=== PATIENT | female | born 1985 | race Caucasian/White ===

== ENCOUNTER 2020-10-24 13:11 | Outpatient (REF) | payer OTHER, SELFPAY ==
[2020-10-24 15:05] LABS: TSH reflex Free T4 0.44 uIU/mL (0.32-4.0)
[2020-10-25 03:59] LABS: CT PCR NOT DETECTED (Not Detect.); NG PCR NOT DETECTED (Not Detect.)
[2020-10-25 10:02] LABS: BV Int Neg Control Negative (Negative); BV Int Pos Control Positive (Positive)
[2020-10-26 20:22] LABS: HPV mRNA E6/E7 rflx Not Detected (Not Detected)
== END 2020-10-24 13:12 | disposition home or self-care (01) ==
LOC: HO.LAB 13:11
PROVIDERS: Visit Provider Obstetrics & Gynecology
DX: Z01.411 Encounter for gynecological examination (general) (routine) with abnormal findings (principal); Z11.51 Encounter for screening for human papillomavirus (HPV); Z11.3 Encounter for screening for infections with a predominantly sexual mode of transmission; N93.9 Abnormal uterine and vaginal bleeding, unspecified
CPT/HCPCS: 36415; 84443; 87480; 87491; 87510; 87591; 87624; 87660; 88142

== ENCOUNTER 2021-03-06 11:18 | Outpatient (REF) | payer OTHER, SELFPAY ==
[2021-03-06 13:34] LABS: Influenza A PCR NEGATIVE (Negative); Influenza B PCR NEGATIVE (Negative); Resp Syncy Virus RNA Qual PCR NEGATIVE (Negative); SARS COV2 PCR INHOUSE NEGATIVE (Negative)
== END 2021-03-06 11:19 | disposition home or self-care (01) ==
LOC: HO.LNP 11:18
PROVIDERS: Visit Provider Nurse Practitioner Family
DX: Z20.822 Contact with and (suspected) exposure to COVID-19 (principal); J32.9 Chronic sinusitis, unspecified; R09.81 Nasal congestion
CPT/HCPCS: 0241U

== ENCOUNTER 2021-04-08 13:34 | Outpatient (REF) | payer OTHER, SELFPAY ==
[2021-04-09 05:33] LABS: CT PCR NOT DETECTED (Not Detect.); NG PCR NOT DETECTED (Not Detect.)
[2021-04-09 10:21] LABS: BV Int Neg Control Negative (Negative); BV Int Pos Control Positive (Positive)
== END 2021-04-08 13:35 | disposition home or self-care (01) ==
LOC: HO.LAB 13:34
PROVIDERS: PCP Physician Assistant; Visit Provider Advanced Practice Midwife
DX: N89.8 Other specified noninflammatory disorders of vagina (principal); N92.1 Excessive and frequent menstruation with irregular cycle; N93.9 Abnormal uterine and vaginal bleeding, unspecified
CPT/HCPCS: 87480; 87491; 87510; 87591; 87660

== ENCOUNTER 2021-04-30 14:13 | Outpatient (REF) | payer OTHER, SELFPAY ==
--- NOTE | ~2021-04-30 | US_ITS ---
EXAMINATION: US PELVIS CLINICAL INFORMATION: Abnormal uterine bleeding. COMPARISON: Pelvic ultrasound 07/21/2013 TECHNIQUE: Ultrasound of the pelvis is performed using both transabdominal and transvaginal transducers along with Doppler. Transvaginal imaging is performed due to inadequate visualization transabdominally. FINDINGS: Uterus: The uterus is anteverted and measures 12.0 x 5.5 x 6.5 cm. The double wall endometrial thickness is 0.7 mm. The uterus is smooth in contour and has normal myometrial echogenicity. No visible fibroid. Previously seen IUD is not identified on the current exam. Nabothian cysts are present in the cervix. Adnexa: Both ovaries are visualized. There is normal color flow to the adnexa. There is no ovarian torsion. There is no pelvic ascites or fluid collection. Right ovary measures 4.5 x 2.7 x 2.8 cm for a volume of 17.7 mL which includes a complex hemorrhagic 2.1 x 2.1 x 1.9 cm cyst. Left ovary measures 2.8 x 1.4 x 2.4 cm for a 4.8 mL and appears normal. US/US pelvic and transvaginal IMPRESSION: No significant abnormality is seen. A small hemorrhagic cyst is present in the right ovary which needs no further follow-up.
[2021-04-30 15:29] LABS: Hematocrit 40.2 % (37.0-47.0); Hemoglobin 12.5 g/dl (12.0-16.0); Mean Corpuscular HGB Conc 31.1 g/dl (31.0-35.0); Mean Corpuscular Hemoglobin 26.1 pg (27.0-33.0); Mean Corpuscular Volume 83.9 fL (80.0-98.0); Mean Platelet Volume 10.1 fL (9.4-12.3); Platelet Count 259 X10*3/uL (160-400); Red Blood Count 4.79 X10*6/uL (4.20-5.50); Red Cell Distribution Width 12.9 % (11.0-16.0); White Blood Count 10.5 X10*3/uL (4.8-10.8)
[2021-04-30 16:12] LABS: Thyroid Stimulating Hormone 0.94 uIU/mL (0.32-4.0)
== END 2021-04-30 14:14 | disposition home or self-care (01) ==
LOC: HO.US 14:13
PROVIDERS: PCP Physician Assistant; Visit Provider Advanced Practice Midwife
DX: N93.9 Abnormal uterine and vaginal bleeding, unspecified (principal); N92.1 Excessive and frequent menstruation with irregular cycle; N88.8 Other specified noninflammatory disorders of cervix uteri
CPT/HCPCS: 36415; 76830; 76856; 84443; 85027

== ENCOUNTER → 2021-05-14 11:30 | Outpatient (BNVA) | payer OTHER, SELFPAY | PROVIDERS: PCP Physician Assistant; Visit Provider Advanced Practice Midwife ==

== ENCOUNTER 2021-06-04 09:29 | Emergency (ER) | payer OTHER, SELFPAY ==
--- NOTE | ~2021-06-04 | CT_ITS ---
EXAMINATION: CT ABDOMEN AND PELVIS WITH CONTRAST CLINICAL INFORMATION: Lower abdominal and pelvic pain COMPARISON: Previous abdominal ultrasound from earlier the same day and pelvic ultrasound April 2021 TECHNIQUE: Multidetector volumetric images were obtained from the superior aspect of the liver through the pubic symphysis following administration 80 mL of Omnipaque 350 intravenous contrast. Sagittal and coronal reformatted images were obtained on the technologist's workstation. Oral contrast: Yes This CT examination was performed using dose optimization techniques as appropriate, variously including the following: *Automated exposure control *Adjustment of mA and/or kV according to patient size (this includes techniques or standardized protocols for targeted exams where dose is matched to indication/reason for exam; i.e. extremities or head) *Use of iterative reconstruction technique DLP: 758 mGy-cm FINDINGS: LUNG BASES: The visualized lung bases are unremarkable. LIVER, GALLBLADDER, AND BILIARY TREE: The liver is normal in size, shape, and attenuation. No focal hepatic lesion or biliary ductal dilatation is present. The gallbladder is unremarkable with no evidence of radiopaque gallstones, gallbladder wall thickening, or obvious pericholecystic inflammatory changes. PANCREAS: Unremarkable. SPLEEN: Unremarkable. ADRENAL GLANDS: Unremarkable. KIDNEYS AND URETERS: The kidneys are normal in size, shape, and attenuation. No hydronephrosis, hydroureter, or calculi seen. No perinephric stranding. BLADDER: Unremarkable. GASTROINTESTINAL TRACT: The small and large bowel are unremarkable. The appendix is unremarkable. ABDOMINAL WALL: There is a small umbilical hernia containing fat. LYMPH NODES: There are small, small bowel mesentery and retroperitoneal lymph nodes. No enlarged lymph nodes are seen. VASCULAR: Unremarkable. PELVIC VISCERA: There is a small 1.5 x 2 cm slightly complex left ovarian cyst. This is irregularly-shaped and has a slightly thickened enhancing wall. Uterus and adnexa are otherwise unremarkable. There is trace ascites in the pelvis. OSSEOUS STRUCTURES: Unremarkable. CT/CT abdomen pelvis w con IMPRESSION: Small 1.5 x 2 cm minimally complex left ovarian cyst. Otherwise unremarkable exam. Fleischner guidelines were followed.
--- NOTE | ~2021-06-04 | XR_ITS ---
EXAMINATION: XR CHEST CLINICAL INFORMATION: Fevers. COMPARISON: None TECHNIQUE: Frontal view of the chest was obtained. FINDINGS: No significant abnormality is noted involving the heart, lungs, mediastinum, bony thorax or soft tissues. XR/XR chest 1V IMPRESSION: Unremarkable chest examination.
--- NOTE | ~2021-06-04 | US_ITS ---
EXAMINATION: US ABDOMEN LIMITED CLINICAL INFORMATION: Right upper quadrant pain. COMPARISON: None TECHNIQUE: Real-time imaging of the right upper quadrant abdominal viscera. FINDINGS: PANCREAS: Normal. LIVER: Normal. The liver is normal in size. The liver contour is normal. Parenchymal echogenicity is normal. No focal hepatic lesion. There is no intrahepatic biliary duct dilatation seen. GALLBLADDER: Normal. The gallbladder is physiologically distended without evidence of stones, sludge, polyps, wall thickening or pericholecystic fluid. COMMON BILE DUCT: Normal in caliber measuring 0.3 cm in diameter. RIGHT KIDNEY: Normal. No hydronephrosis. No renal calculi or focal parenchymal lesions. The kidney measures 12.4 cm in maximum dimension. FREE FLUID: None. US/US abdomen limited IMPRESSION: Normal right upper quadrant ultrasound.
[2021-06-04 10:39] VITALS: BP 120/79; PULSE 98; RESP 18; TEMP 36.8; O2SAT 97; BMI 33.6
--- NOTE | 2021-06-04 10:49 | PC.NURSE ---
Pt received from triage: Pt AOX3 and offers c/o RUQ. Pt abd soft and midly tender to area. Pt also c/o N/V, denies diarrhea. Heart sounds normal and lungs clear.
--- NOTE | 2021-06-04 11:08 | ED_ITS ---
HPI - Abdominal Pain General Chief Complaint: Abdominal Pain Stated Complaint: R SIDE PAIN Time Seen by Provider: 06/04/21 11:07 Source: patient Mode of arrival: ambulatory Limitations: no limitations History of Present Illness MD elicited complaint: abdominal pain (chills, n/v/d ) Onset (ago): day(s) (on and off for past 1 week seemed to get better then returned over the week, has had negative COVID tests) Pain Consistency: intermittent Location: RUQ Severity: moderate Quality: aching Radiation: none Migration to: no migration Exacerbating factors: eating Relieving factors: nothing Context: other (vaccinated x 2) Associated symptoms: nausea, vomiting and chills Related Data Home Medications Medication Instructions Recorded Confirmed [id number] 18 mg-FA 400 tab PO 05/30/21 mcg-calcium 500 mg-vit K 50 mcg tablet (Women's Multivitamin) Previous Rx's Medication Instructions Recorded naproxen 500 mg tablet 500 mg PO BID PRN #60 tab 04/26/20 metronidazole 500 mg tablet 500 mg PO BID 7 Days #14 tab 10/25/20 (Flagyl) azithromycin 250 mg tablet See Rx Instructions PO .COMPLEX #6 03/06/21 tab fluconazole 150 mg tablet 150 mg PO DAILY #1 tab 04/09/21 (Diflucan) cyclobenzaprine 5 mg tablet 5 mg PO BEDTIME PRN #14 tab 05/30/21 ondansetron 4 mg disintegrating 4 mg PO Q8H PRN #20 tab 06/04/21 tablet Allergies Allergy/AdvReac Type Severity Reaction Status Date / Time No Known Allergies Allergy Verified 06/04/21 10:39 [No Known Allergies*] Review of Systems Review of Systems Constitutional : No Weight loss, No Fever, pos Chills ENT/Mouth : No sore throat, No Rhinorrhea Eyes: No Swelling, No Redness Cardiovascular : No Chest Pain, No SOB, NoEdema Respiratory : No Cough, No Sputum, No Wheezing Gastrointestinal : Positive Nausea, Positive Vomiting, positive Diarrhea, positive abdominal Pain, No Hematochezia, No Melena Genitourinary : No Dysuria, No Urinary Frequency, No Hematuria, No Urgency Musculoskeletal : No joint pain, pos Myalgias, No Joint Swelling Skin : No Skin Lesions, No rash Neuro : No Weakness, No Numbness, No Dizziness, No Headache Psych : No Anxiety/Panic, No Depression Heme/Lymph: No Bruising, No Lymphadenopathy Endocrine : No Polyuria, No Polydipsia All other systems reviewed and are negative. Physical Exam Verdana 4l Vital Signs: Verdana 4d Verdana 4d Vital Signs: Verdana 4d Verdana 4Bd Last Vital Signs Verdana 4d Beam Dyer Operator New 4d Beam Dyer Operator New 4d Temp 98.3 F 06/04/21 10:39 Beam Dyer Operator New 4d Pulse 69 06/04/21 12:43 Beam Dyer Operator New 4d Resp 14 06/04/21 12:43 BP 103/60 06/04/21 12:43 Pulse Ox 100 06/04/21 12:43 BMI result Body Mass Index 33.6 Appearance: Alert. Oriented X3. No acute distress. Eyes: Pupils equal, round and reactive to light. ENT: Pharynx normal. Neck: Normal inspection. Neck supple. CVS: Normal heart rate and rhythm. Pulses normal. Chest: ttp RL ribs reproduces pain Respiratory: No respiratory distress. Breath sounds normal. Abdomen: Soft and non-tender, neg blake's no rebound Skin: Skin warm and dry. Normal skin color. Normal skin turgor. Extremities: No lower extremity edema. No calf ttp Neuro: Oriented X 3. No motor deficit. No sensory deficit. Course Course Course Narrative: negative viral panel, no pneumonia, elevated CRP, US negative for acute cholecystitis, CT scan ordered at this time for appendicitis. no acute findings at this time elevated CRP but negative WBC afebrile here has small complex ovarian cyst but all pain is in RUQ and L cyst is old per pateint - seems unusual doubt TOA at this time stable for DC MDM - Abdominal Pain MDM Narrative Medical decision making narrative: 35 yo female unvaccinated here with c/o n/v/d chills not feeling well negative COVID tests - has some RUQ pain at this time will need labs, CXR, COVID swab, UA - possible CT scan of abdomen given complaints to evaluate appendicitis/GB dispo per results and findings. Lab Data Result diagrams: 06/04/21 11:47 06/04/21 11:47 Labs: Lab Results 06/04/21 06/04/21 06/04/21 Range/Units 11:47 11:47 11:47 WBC 9.4 (4.8-10.8) X10*3/uL RBC 5.16 (4.20-5.50) X10*6/uL Hgb 13.2 (12.0-16.0) g/dl Hct 41.3 (37.0-47.0) % MCV 80.0 (80.0-98.0) fL MCH 25.6 L (27.0-33.0) pg MCHC 32.0 (31.0-35.0) g/dl RDW 12.6 (11.0-16.0) % Plt Count 289 (160-400) X10*3/uL MPV 9.5 (9.4-12.3) fL Immature Gran % (Auto) 0.6 H (0.0-0.4) % Neut % (Auto) 81.4 H (45-73) % Lymph % (Auto) 9.6 L (20-40) % [place] % (Auto) 7.0 (2-11) % Eos % (Auto) 1.3 (0-4) % Baso % (Auto) 0.1 (0-2) % Lymph # (Auto) 0.9 L (1.2-4.9) X10*3/uL [place] # (Auto) 0.7 (0.1-1.2) X10*3/uL Eos # (Auto) 0.1 (0.0-0.4) X10*3/uL Baso # (Auto) 0.0 (0.0-0.2) X10*3/uL Abs Immat Gran (auto) 0.06 H (0.00-0.03) X10*3/uL Absolute Neuts (auto) 7.7 (2.0-8.3) x10*3/uL Absolute Nucleated RBC 0.000 (0.0-0.012) X10*3/uL Nucleated RBC % (auto) 0.0 (0.0-0.2) /100WBC Sodium 136 (135-145) mmol/L Potassium 4.0 (3.3-5.1) mmol/L Chloride 103 (96-108) mmol/L Carbon Dioxide 26 (22-29) mmol/L Anion Gap 11 L (12-20) BUN 13 (9-16) mg/dL Creatinine 0.70 (0.5-1.4) mg/dL Estim Creat Clear Calc 115.6 Estimated GFR > 60 Random Glucose 83 (60-115) mg/dL Calcium 9.1 (8.4-10.2) mg/dL Magnesium 2.2 (1.6-2.6) mg/dL Total Bilirubin 1.0 (0.0-1.0) mg/dL Direct Bilirubin 0.4 (0.0-0.5) mg/dL AST 22 (5-31) U/L ALT 41 H (0-31) U/L Alkaline Phosphatase 105 (39-117) U/L C-Reactive Protein 4.05 H (< or = 0.50) mg/dL Total Protein 7.0 (6.5-8.0) g/dL Albumin 3.9 (3.5-5.0) g/dL Lipase 19 (8-78) U/L Urine Color Urine Appearance Urine pH (5.0-8.0) Ur Specific [place] (1.005-1.025) Urine Protein (NEG-TRACE) MG/DL Urine Glucose (UA) (NEG) MG/DL Urine Ketones (NEG) MG/DL Urine Blood (NEG) Urine Nitrite (NEG) Ur Leukocyte Esterase (NEG) Urine Test (NEGATIVE) COVID-19 (LINA) Negative (Negative) COVID-19 Clin Com See Note Influenza Type A (MADHU) (Negative) Influenza Type B (MADHU) (Negative) Influenza A & B Note 06/04/21 06/04/21 06/04/21 Range/Units 11:47 11:47 11:47 WBC (4.8-10.8) X10*3/uL RBC (4.20-5.50) X10*6/uL Hgb (12.0-16.0) g/dl Hct (37.0-47.0) % MCV (80.0-98.0) fL MCH (27.0-33.0) pg MCHC (31.0-35.0) g/dl RDW (11.0-16.0) % Plt Count (160-400) X10*3/uL MPV (9.4-12.3) fL Immature Gran % (Auto) (0.0-0.4) % Neut % (Auto) (45-73) % Lymph % (Auto) (20-40) % [place] % (Auto) (2-11) % Eos % (Auto) (0-4) % Baso % (Auto) (0-2) % Lymph # (Auto) (1.2-4.9) X10*3/uL [place] # (Auto) (0.1-1.2) X10*3/uL Eos # (Auto) (0.0-0.4) X10*3/uL Baso # (Auto) (0.0-0.2) X10*3/uL Abs Immat Gran (auto) (0.00-0.03) X10*3/uL Absolute Neuts (auto) (2.0-8.3) x10*3/uL Absolute Nucleated RBC (0.0-0.012) X10*3/uL Nucleated RBC % (auto) (0.0-0.2) /100WBC Sodium (135-145) mmol/L Potassium (3.3-5.1) mmol/L Chloride (96-108) mmol/L Carbon Dioxide (22-29) mmol/L Anion Gap (12-20) BUN (9-16) mg/dL Creatinine (0.5-1.4) mg/dL Estim Creat Clear Calc Estimated GFR Random Glucose (60-115) mg/dL Calcium (8.4-10.2) mg/dL Magnesium (1.6-2.6) mg/dL Total Bilirubin (0.0-1.0) mg/dL Direct Bilirubin (0.0-0.5) mg/dL AST (5-31) U/L ALT (0-31) U/L Alkaline Phosphatase (39-117) U/L C-Reactive Protein (< or = 0.50) mg/dL Total Protein (6.5-8.0) g/dL Albumin (3.5-5.0) g/dL Lipase (8-78) U/L Urine Color YELLOW Urine Appearance HAZY Urine pH 6.5 (5.0-8.0) Ur Specific [place] 1.020 (1.005-1.025) Urine Protein NEG (NEG-TRACE) MG/DL Urine Glucose (UA) NEG (NEG) MG/DL Urine Ketones 5 (NEG) MG/DL Urine Blood NEG (NEG) Urine Nitrite NEG (NEG) Ur Leukocyte Esterase NEG (NEG) Urine Test NEGATIVE (NEGATIVE) COVID-19 (LINA) (Negative) COVID-19 Clin Com Influenza Type A (MADHU) Negative (Negative) Influenza Type B (MADHU) Negative (Negative) Influenza A & B Note See Note Discharge Plan Discharge Clinical Impression: Acute viral syndrome Ovarian cyst Qualifiers: Laterality: left Qualified Code(s): N83.202 - Unspecified ovarian cyst, left side Patient Disposition: Home, Self-Care Instructions: Ovarian Cyst (ED), Viral Syndrome (ED) Additional Instructions: return to ED for any worsening symptoms or concerns follow up with PCP if not better in 2 days follow up with OBGYN for ovarian cyst in 4 weeks for repeat ultrasound negative COVID and flu tests Prescriptions: New ondansetron 4 mg tablet,disintegrating 4 mg PO Q8H PRN (Reason: nausea and vomiting) Qty: 20 0RF No Action metronidazole [Flagyl] 500 mg tablet 500 mg PO BID 7 Days Qty: 14 0RF Rx Instructions: Take with food, Avoid alcohol and vinegar products fluconazole [Diflucan] 150 mg tablet 150 mg PO DAILY Qty: 1 0RF Rx Instructions: administer on day 1 of therapy naproxen 500 mg tablet 500 mg PO BID PRN (Reason: pain) Qty: 60 0RF azithromycin 250 mg tablet See Rx Instructions PO .COMPLEX Qty: 6 0RF Rx Instructions: For 250 mg dose pack: take 500 mg today (day 1), then 250 mg for 4 days (days 2-5) PO Women's Multivitamin 18 mg-400 mcg- 500 mg-50 mcg tablet PO 0RF cyclobenzaprine 5 mg tablet 5 mg PO BEDTIME PRN (Reason: muscle spasm) Qty: 14 0RF Stand Alone Forms: Work/School Release Interventions: ED Discharge Assessment Last Done: 06/04/21 15:20 Discharge Date/Time: 06/04/21 15:35 [facility] Past Medical History Medical History History of lipoma Right ovarian cyst Surgical History History of bilateral breast reduction surgery History of bilateral salpingectomy History of section Family History Family History Maternal Grandmother Diabetes Hypertension Glaucoma Maternal Grandfather Diabetes Hypertension Social History Social History Patient Tobacco Use Status: Never used Tobacco Advance Directives: No Advance Directives Information Provided: No
[2021-06-04] MEDS: ondansetron HCL 4 MG/2 ML VIAL IVPUSH (11:51)
[2021-06-04] MEDS: Ketorolac Tromethamine 30 MG/ML VIAL IVPUSH (11:51)
[2021-06-04] MEDS: 0.9 % Sodium Chloride 1,000 ML 999 ML IVCONT (11:52)
[2021-06-04 11:58] LABS: MANUAL DIFF FLAG NO
[2021-06-04 12:06] LABS: Basophils Percent Auto 0.1 % (0-2); Eosinophils Absolute Auto 0.1 X10*3/uL (0.0-0.4); Eosinophils Percent Auto 1.3 % (0-4); Hematocrit 41.3 % (37.0-47.0); Hemoglobin 13.2 g/dl (12.0-16.0); Imm Gran Abs Auto 0.06 X10*3/uL (0.00-0.03); Imm Gran Pct Auto 0.6 % (0.0-0.4); Lymphocytes Absolute Auto 0.9 X10*3/uL (1.2-4.9); Lymphocytes Percent Auto 9.6 % (20-40); Mean Corpuscular Hemoglobin 25.6 pg (27.0-33.0); Mean Platelet Volume 9.5 fL (9.4-12.3); Monocytes Absolute Auto 0.7 X10*3/uL (0.1-1.2); Neutrophils Absolute Auto 7.7 x10*3/uL (2.0-8.3); Neutrophils Percent Auto 81.4 % (45-73); Platelet Count 289 X10*3/uL (160-400); Red Blood Count 5.16 X10*6/uL (4.20-5.50); Red Cell Distribution Width 12.6 % (11.0-16.0); White Blood Count 9.4 X10*3/uL (4.8-10.8)
[2021-06-04 12:12] LABS: Appearance Urine HAZY; Color Urine YELLOW; Glucose Urine UA NEG (NEG); Leukocyte Esterase Urine NEG (NEG); Nitrite Urine NEG (NEG); PH 6.5 (5.0-8.0); Urine Blood NEG (NEG); Urine Ketones 5 MG/DL (NEG); Urine Protein NEG (NEG-TRACE)
[2021-06-04 12:15] LABS: UPreg QC Valid YES; Urine Pregnancy NEGATIVE (NEGATIVE)
[2021-06-04 12:26] LABS: Alanine Aminotransferase 41 U/L (0-31); Albumin Level 3.9 g/dL (3.5-5.0); Alkaline Phosphatase 105 U/L (39-117); Anion Gap 11 (12-20); Aspartate Amino Transferase 22 U/L (5-31); Bilirubin Direct 0.4 mg/dL (0.0-0.5); Blood Urea Nitrogen 13 mg/dL (9-16); C Reactive Protein 4.05 mg/dL (< or = 0.50); Calcium 9.1 mg/dL (8.4-10.2); Carbon Dioxide 26 mmol/L (22-29); Chloride 103 mmol/L (96-108); Creatinine Clr Calc Pharmacy 115.6; Estimated Glomerular Filt Rate > 60; Glucose Random 83 mg/dL (60-115); Lipase 19 U/L (8-78); Magnesium 2.2 mg/dL (1.6-2.6); Sodium 136 mmol/L (135-145)
[2021-06-04 12:31] LABS: COVID-19 Test Negative (Negative); IDNOW Serial# 55D5AD1C
[2021-06-04 12:38] LABS: Influenza A Negative (Negative); Influenza B2 Negative (Negative)
[2021-06-04 12:43] VITALS: BP 103/60; PULSE 69; RESP 14; O2SAT 100
[2021-06-04] MEDS: iohexoL 350 MG/ML 100 ML INFUS..BTL IV ×2 (13:35→13:43)
== END 2021-06-04 15:35 | disposition home or self-care (01) ==
PROVIDERS: Emergency Provider Emergency Medicine
DX: B34.9 Viral infection, unspecified (principal); N83.202 Unspecified ovarian cyst, left side; Z20.822 Contact with and (suspected) exposure to COVID-19; R10.9 Unspecified abdominal pain
CPT/HCPCS: 71045; 74177; 76705; 80048; 80076; 81003; 81025; 83690; 83735; 85025; 86140; 87502; 87635; 96361; 96374; 96375; 99283; 99284; J1885; J2405; Q9967

== ENCOUNTER 2021-06-25 12:47 | Outpatient (REF) | payer OTHER, SELFPAY ==
--- NOTE | ~2021-06-25 | US_ITS ---
EXAMINATION: US PELVIS CLINICAL INFORMATION: Right ovarian cyst COMPARISON: Previous pelvic ultrasound April [address] of the abdomen and pelvis 06/04/2021 TECHNIQUE: Ultrasound of the pelvis is performed using both transabdominal and transvaginal transducers along with Doppler. Transvaginal imaging is performed due to inadequate visualization transabdominally. FINDINGS: The uterus is anteverted and measures 9 x 5 x 5.6 cm in dimension. There is a small calcification in the uterus. No other focal uterine lesion is seen. Endometrial thickness is normal measuring 0.7 cm. There is a nabothian cyst in the cervix. The ovaries are normal-appearing. The right ovary measures 3.6 x 2.4 x 3.6 cm. The left ovary measures 2.8 x 1.7 x 2.5 cm. The previously identified 2 cm complex right ovarian cyst on April 2021 exam is no longer seen. There is a small amount of fluid in the pelvis. US/US pelvic and transvaginal IMPRESSION: Resolved right ovarian cyst from April 2021 exam.
== END 2021-06-25 12:48 | disposition home or self-care (01) ==
LOC: HO.US 12:47
PROVIDERS: PCP Nurse Practitioner Family; Visit Provider Advanced Practice Midwife
DX: N83.201 Unspecified ovarian cyst, right side (principal)
CPT/HCPCS: 76830; 76856

== ENCOUNTER 2021-08-23 08:00 | Outpatient (RCR) | payer OTHER, SELFPAY ==
--- NOTE | 2021-06-20 15:47 | MHC.PT.PR ---
[facility] [place] Office [place] Office [place] Office [address] Phani Echevarria [address] [phone] F: [phone] F: [phone] F: [phone] F: [phone] Physical Therapy Progress Note Diagnosis: RUBEN UPPER TRAP PAIN Date of Surgery: NA Date of Evaluation: 06/19/21 Treatments to Date: 1 Cancellations to Date: 0 No Shows to Date: 0 Subjective: C/O RIGHT LOW BACK PAIN WITH RADICULAR SYMPTOMS INTO BUTTOCKS, VAGINA AND POSTERIOR THIGH Pain Score and Location: CURRENTLY 9, 10 AT WORST Objective Measures: PLEASE SEE EVAL Assessment: CHENTE PRESENTS WITH LOW BACK PAIN AND S/S WITH PIRIFORMIS SYNDROME. CHENTE PRESENTS WITH ADDITIONAL SYMPTOMS OF POSSIBLE PELVIC FLOOR DYSFUNCTION LEADING TO INCREASED PAIN. IMPAIRMENTS INCLUDE DECREASED LE ROM AND STRENGTH, MULTIPLE TRIGGER POINTS, NUMBNESS OF RIGHT BUTTOCKS AND VAGINAL WALL, INCREASED PAIN. FUNCTIONAL LIMITATIONS INCLUDE DECREASED TOLERANCE TO LIFTING, SQUATTING, WALKING/RUNNING AND SITTING FOR LONG PERIODS. SHE REPORTS DECREASED ABILITY TO PERFORM HOMEMAKING AND WORK TASKS, DECREASED PARTICIPATION IN RECREATION AND FITNESS ACTIVITIES. A PT IS A GOOD CANDIDATE FOR SKILLED PT DUE TO AGE, POTENTIAL REMEDIATION OF IMPAIRMENTS, TYPICAL DISEASE/CONDITION PROGRESSION AND PROGNOSIS, COMORBIDITIES, AND MOTIVATION. PT WOULD BENEFIT FROM TAILORED PROGRAM OF THERAPEUTIC ACTIVITIES, FUNCTIONAL TRAINING, GAIT TRAINING, POSTURAL EDUCATION, NEUROMUSCULAR RE-EDUCATION, AND MODALITIES NEEDED. PT Plan: Frequency and Duration: The patient will be seen 2 X WEEK FOR 5 WEEKS Treatment Plan: Therapeutic Exercise Dynamic Therapeutic Activities Neuromuscular Re-ed Manual Therapies Joint Mobilization Taping Gait Home Exercise Program Patient Education Electrical Stimulation Mechanical Traction Hot or Cold Pack Pelvic Floor Therapy Reviewed/ Agreed with Student Documentation: Therapist: Thank you once again for your referral.
--- NOTE | 2021-08-23 08:52 | MHC.PT.DC ---
[facility] [place] Office [place] Office [place] Office [address] Phani Echevarria [address] [phone] F: [phone] F: [phone] F: [phone] F: [phone] Physical Therapy Discharge Report Diagnosis: RUBEN UPPER TRAP PAIN Date of Surgery: NA Date of Evaluation: 06/19/21 Date of Discharge: 08/23/21 Treatments to Date: 12 Cancellations to Date: 0 No Shows to Date: 0 Discharge Status: Achieved Goals Improved Function Independent with HEP Discharge Summary: Queta had completed 12 PT visits and has improved significantly. She is independent with all her HEPs and has returned to PLOF. She is therefore being d/c from PT today. Electronically signed by: Erma Benitez, PT DPT Please sign and return to therapist. Thank you for your referral.
== END 2021-08-23 08:52 | disposition home or self-care (01) ==
LOC: HO.PT 08:00
PROVIDERS: PCP Nurse Practitioner Family; Visit Provider Nurse Practitioner Family
DX: M53.3 Sacrococcygeal disorders, not elsewhere classified (principal)
CPT/HCPCS: 97014; 97110; 97112; 97140; 97162; 97164; 97530

== ENCOUNTER 2021-10-23 09:28 | Outpatient (REF) | payer OTHER, SELFPAY ==
[2021-10-23 10:26] LABS: Alanine Aminotransferase 23 U/L (0-31); Albumin Level 4.2 g/dL (3.5-5.0); Alkaline Phosphatase 78 U/L (39-117); Anion Gap 11 (12-20); Aspartate Amino Transferase 22 U/L (5-31); Bilirubin Direct 0.3 mg/dL (0.0-0.5); Bilirubin Total 0.6 mg/dL (0.0-1.0); Blood Urea Nitrogen 13 mg/dL (9-16); C Reactive Protein 0.65 mg/dL (< or = 0.50); Carbon Dioxide 26 mmol/L (22-29); Chloride 104 mmol/L (96-108); Cholesterol 158 mg/dL; Estimated Glomerular Filt Rate > 60; Glucose Fasting 89 mg/dL (60-99); HDL Cholesterol 40 mg/dL; LDL Cholesterol Calculated 103 mg/dl; Potassium 4.1 mmol/L (3.3-5.1); Sodium 137 mmol/L (135-145); Total Protein 7.3 g/dL (6.5-8.0); Triglycerides 77 mg/dL
== END 2021-10-23 09:29 | disposition home or self-care (01) ==
LOC: HO.LAB 09:28
PROVIDERS: PCP Nurse Practitioner Family; Visit Provider Nurse Practitioner Family
DX: R94.5 Abnormal results of liver function studies (principal); R79.82 Elevated C-reactive protein (CRP); E78.00 Pure hypercholesterolemia, unspecified; Z76.89 Persons encountering health services in other specified circumstances
CPT/HCPCS: 36415; 80048; 80061; 80076; 86140

== ENCOUNTER 2022-04-30 09:27 | Outpatient (REF) | payer OTHER, SELFPAY | END 2022-04-30 09:28 | disposition home or self-care (01) | LOC: HO.LNP 09:27 | PROVIDERS: Visit Provider Advanced Practice Midwife | DX: Z13.89 Encounter for screening for other disorder (principal) ==

== ENCOUNTER 2022-04-30 10:20 | Outpatient (REF) | payer OTHER, SELFPAY ==
[2022-04-30 10:46] LABS: MANUAL DIFF FLAG NO
[2022-04-30 10:58] LABS: Basophils Percent Auto 0.3 % (0-2); Eosinophils Absolute Auto 0.1 X10*3/uL (0.0-0.4); Eosinophils Percent Auto 0.9 % (0-4); Hematocrit 43.3 % (37.0-47.0); Hemoglobin 13.6 g/dl (12.0-16.0); Imm Gran Abs Auto 0.03 X10*3/uL (0.00-0.03); Imm Gran Pct Auto 0.2 % (0.0-0.4); Lymphocytes Absolute Auto 1.6 X10*3/uL (1.2-4.9); Lymphocytes Percent Auto 12.2 % (20-40); Mean Corpuscular HGB Conc 31.4 g/dl (31.0-35.0); Mean Corpuscular Hemoglobin 25.3 pg (27.0-33.0); Mean Corpuscular Volume 80.5 fL (80.0-98.0); Mean Platelet Volume 9.9 fL (9.4-12.3); Monocytes Absolute Auto 0.9 X10*3/uL (0.1-1.2); Monocytes Percent Auto 6.6 % (2-11); Neutrophils Absolute Auto 10.3 x10*3/uL (2.0-8.3); Neutrophils Percent Auto 79.8 % (45-73); Platelet Count 292 X10*3/uL (160-400); Red Blood Count 5.38 X10*6/uL (4.20-5.50); Red Cell Distribution Width 12.9 % (11.0-16.0); White Blood Count 12.9 X10*3/uL (4.8-10.8)
[2022-04-30 11:49] LABS: Thyroid Stimulating Hormone 1.11 uIU/mL (0.32-4.0)
[2022-04-30 12:19] LABS: Syphilis Screen Nonreactive (Nonreactive)
[2022-04-30 12:28] LABS: HBc Num1 0.08 S/CO (0.00-0.79); HIV AB/AG Nonreactive (Nonreactive); HIV Num 1 0.06 S/CO (0.00-0.99); Hepatitis B Core Antibody Nonreactive (Nonreactive); ~Hepatitis C Antibody Nonreactive (Nonreactive)
[2022-04-30 18:04] LABS: CT PCR NOT DETECTED (Not Detect.); NG PCR NOT DETECTED (Not Detect.)
[2022-05-01 09:19] LABS: BV Int Neg Control Negative (Negative); BV Int Pos Control Positive (Positive)
== END 2022-04-30 10:21 | disposition home or self-care (01) ==
LOC: HO.LAB 10:20
PROVIDERS: Visit Provider Advanced Practice Midwife
DX: Z11.3 Encounter for screening for infections with a predominantly sexual mode of transmission (principal); Z11.4 Encounter for screening for human immunodeficiency virus [HIV]; Z20.2 Contact with and (suspected) exposure to infections with a predominantly sexual mode of transmission; N92.1 Excessive and frequent menstruation with irregular cycle
CPT/HCPCS: 84443; 85025; 86704; 86780; 86803; 87389; 87480; 87491; 87510; 87591; 87660

== ENCOUNTER 2022-12-19 10:58 | Outpatient (AMB) | payer OTHER, SELFPAY ==
[2022-12-19 11:00] VITALS: BP 106/70; PULSE 78; O2SAT 98; BMI 35.4
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
== END 2022-12-19 11:37 | disposition home or self-care (01) ==
PROVIDERS: Visit Provider Nurse Practitioner Family
DX: Z00.00 Encounter for general adult medical examination without abnormal findings (principal); R22.9 Localized swelling, mass and lump, unspecified; E66.9 Obesity, unspecified; Z68.35 Body mass index [BMI] 35.0-35.9, adult; M54.50 Low back pain, unspecified
CPT/HCPCS: 99395

== ENCOUNTER 2022-12-27 09:06 | Outpatient (REF) | payer OTHER, SELFPAY ==
--- NOTE | ~2022-12-27 | XR_ITS ---
EXAMINATION: XR LUMBOSACRAL SPINE WITH OBLIQUES CLINICAL INFORMATION: Low back pain COMPARISON: None available. TECHNIQUE: AP, both oblique, and lateral views of the lumbar spine. Lateral view of the lumbosacral junction. FINDINGS: Mild leftward curvature/rotation of the lumbar spine. Rounded pelvic calcifications are likely vascular. Degenerative changes in the bilateral sacroiliac joints. Facet arthritis in the lower lumbar spine. Advanced degenerative changes at L5-S1 with loss of disc space height and hypertrophic change. Grade 1 anterolisthesis of L5 on S1 with possible spondylolysis. XR/XR lumbar spine 4V min IMPRESSION: Advanced degenerative changes at L5-S1. Grade 1 anterolisthesis of L5 on S1 with possible spondylolysis.
[2022-12-27 09:19] LABS: MANUAL DIFF FLAG NO
[2022-12-27 09:23] LABS: Basophils Percent Auto 0.5 % (0-2); Eosinophils Absolute Auto 0.1 X10*3/uL (0.0-0.4); Eosinophils Percent Auto 1.8 % (0-4); Hemoglobin 12.9 g/dl (12.0-16.0); Imm Gran Abs Auto 0.04 X10*3/uL (0.00-0.03); Imm Gran Pct Auto 0.5 % (0.0-0.4); Lymphocytes Absolute Auto 1.6 X10*3/uL (1.2-4.9); Lymphocytes Percent Auto 20.5 % (20-40); Mean Corpuscular HGB Conc 31.5 g/dl (31.0-35.0); Mean Corpuscular Hemoglobin 25.9 pg (27.0-33.0); Mean Corpuscular Volume 82.2 fL (80.0-98.0); Mean Platelet Volume 9.8 fL (9.4-12.3); Monocytes Absolute Auto 0.6 X10*3/uL (0.1-1.2); Monocytes Percent Auto 7.9 % (2-11); Neutrophils Absolute Auto 5.3 x10*3/uL (2.0-8.3); Neutrophils Percent Auto 68.8 % (45-73); Platelet Count 252 X10*3/uL (160-400); Red Blood Count 4.99 X10*6/uL (4.20-5.50); White Blood Count 7.7 X10*3/uL (4.8-10.8)
[2022-12-27 10:16] LABS: Alanine Aminotransferase 13 U/L (0-31); Alkaline Phosphatase 66 U/L (39-117); Anion Gap 9 (12-20); Aspartate Amino Transferase 15 U/L (5-31); Bilirubin Total 0.5 mg/dL (0.0-1.0); Blood Urea Nitrogen 11 mg/dL (9-16); Carbon Dioxide 27 mmol/L (22-29); Chloride 106 mmol/L (96-108); Cholesterol 143 mg/dL (<200); Estimated Glomerular Filt Rate > 60; Glucose Fasting 94 mg/dL (60-99); HDL Cholesterol 40 mg/dL (>40); LDL Cholesterol Calculated 83 mg/dL (<100); Sodium 138 mmol/L (135-145); Total Protein 7.1 g/dL (6.5-8.0); Triglycerides 100 mg/dL (<150)
[2022-12-27 10:38] LABS: TSH reflex Free T4 0.89 uIU/mL (0.32-4.0); Vitamin D 25-OH Total 29.7 ng/mL (>30)
[2022-12-27 10:44] LABS: Folate 9.9 ng/mL (> or = 4.0); Vitamin B12 336 pg/mL (200-900)
== END 2022-12-27 09:07 | disposition home or self-care (01) ==
LOC: HO.XRAY 09:06
PROVIDERS: PCP Nurse Practitioner Family; Visit Provider Nurse Practitioner Family
DX: M54.50 Low back pain, unspecified (principal); Z00.00 Encounter for general adult medical examination without abnormal findings; E55.9 Vitamin D deficiency, unspecified
CPT/HCPCS: 36415; 72110; 80053; 80061; 82306; 82607; 82746; 84443; 85025

== ENCOUNTER → 2023-01-06 15:16 | Outpatient (BNVA) | payer OTHER, SELFPAY | PROVIDERS: PCP Nurse Practitioner Family; Visit Provider Physician Assistant Surgical ==

== ENCOUNTER 2023-01-16 08:11 | Outpatient (AMB) | payer OTHER, SELFPAY ==
--- NOTE | 2023-01-16 12:46 | A.OFFVIS_ITS ---
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 protein shakes, intermittent fasting Wakes up: 5.30am, Sleeps: 9pm Breakfast: skips Lunch: 11am (chicken salad, rice with chicken) Dinner: 6pm (sandwich, chicken) Snacks: 10am (berries), 3-4pm (Cookies) Exercise: Gym membership Fluids: Coffee 1 cup/day (creamer), tea: none, soda: none, juice: none, ETOH: 1- 2/month (glass of wine) [facility] Medical History (Updated 01/16/23 @ 12:50 by Gil Garcia MD) Nasal congestion Sinusitis History of lipoma Surgical History History of bilateral breast reduction surgery History of bilateral salpingectomy History of section Family History Maternal Grandmother Diabetes Hypertension Glaucoma Maternal Grandfather Diabetes Hypertension Maternal Aunt Breast cancer Social History Housing: House Alcohol intake: never Patient Tobacco Use Status: Never used Tobacco e-Cigarette/Vaping Use: Never Used Second Hand Smoke Exposure: No service: No 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 Plan for lap sleeve gastrectomy. If diaphragmatic or ventral hernias are present at time of surgery, these will be repaired laparoscopically as well. Risks and complications were discussed in detail including possible conversion to an open procedure, anastomotic leak, bleeding requiring transfusion, small bowel obstruction, , DVT and pulmonary embolism, cardiac, or pulmonary complications, as joint terminal attack controller complications such as anastomotic ulcer, insufficient weight loss and vitamin deficiencies. I emphasized the importance of close follow-up, adherence to instructions and good communication. 2. Nutritional counseling. Start with 2 Celebrate REBUILD protein (buy at [facility]'s [employer] or online) shakes (HALF scoop EACH in 8oz low fat unsweetened almond milk each) at 7am-9am and 10am-12pm, 2 Celebrate protein bars (buy at [email or web address] or online) at 1pm-3pm and 4pm-6pm, dinner at 7pm (8 forks of protein and 8 forks of salad/vegetables). If you feel hungry after dinner please have another HALF Celebrate protein bar at 8pm-9pm. Meal to include lean meat (beef, fish, pork, turkey, chicken), or macanese yogurt, or egg whites, or beans with a salad with olive oil and fruits (berries, pears, apples, kiwi). Avoid salt, breads, potatoes, rice, pasta, desserts. 3. Each shake would be drunk slowly, like coffee in a period of 2 hours. 4. Cut each bar in 4 pieces and eat each piece in 30min ?to make each bar last 2 hours. 5. I emphasized the importance of measuring accurately the food portion and measure it when serving the food in plate 6. The meal portions include 8 full-size forks of meat and 8 full-size forks of salad. You always eat the meat portion but you can replace up to 4 forks for salad/vegetables with rice, potatoes or pasta, or a fruit ?if you like. The less you do it the better weight loss will be. 7. One full-size fork is what it can be scooped on the fork without falling aside and not what can be bit with the fork. Use regular forks like those you find in a typical restaurant. 8.? Please send me weight measurements as soon as possible and then once a week. Always include your diet and exercise plan. 9. Start stationary bike at a resistance level of 4.0 Increase level by 1.0 every 3 min to a max level of 10.0. Stay at this level for 3 min and then return to level 4.0 and repeat same steps until 300 calories are burned. Velocity target is 12mph and heart rate is 145 bpm. Goal is to burn 2000 calories per week on exercise, which means either 300 calories daily, or 400 calories 5 days per week, or 500 calories 4 days per week, or 650 calories 3 days per week. 10. Alternatively purchase a stationary bike, rowing machine at home that can track calories. Let me know if you do so I can give you an exercise plan. 11.?It is important of avoiding and for at least 18 months postoperatively and has been discussed at the infosession. 12. Goal is to lose at least 1.5-2lbs per week 13. Goal to lose 10% of your weight before surgery, which is about 26lbs. Ultimate weight goal: 240lbs before surgery 14. Please follow the diet plan exactly without any change. If you don't like something about the plan or you feel hungry you need to communicate with me so I can help you revise the plan. You should not change the plan yourself. (2) Chronic low back pain with right-sided sciatica: Code(s): M54.41 - Lumbago with sciatica, right side; G89.29 - Other chronic pain (3) BMI 35.0-35.9,adult: Code(s): Z68.35 - Body mass index [BMI] 35.0-35.9, adult Orders: Orders Insulin Today E66.9 - Obesity, unspecified, Z68.35 - Body mass index [BMI] 35.0- 35.9, adult Lipid Panel Today E66.9 - Obesity, unspecified, Z68.35 - Body mass index [BMI] 35.0-35.9, adult Comprehensive Met. Panel Today E66.9 - Obesity, unspecified, Z68.35 - Body mass index [BMI] 35.0-35.9, adult C Reactive Protein Today E66.9 - Obesity, unspecified, Z68.35 - Body mass index [BMI] 35.0-35.9, adult Ferritin Today E66.9 - Obesity, unspecified, Z68.35 - Body mass index [BMI] 35.0-35.9, adult TSH reflex Free T4 Today E66.9 - Obesity, unspecified, Z68.35 - Body mass index [BMI] 35.0-35.9, adult H Pylori Breath Test Today E66.9 - Obesity, unspecified, Z68.35 - Body mass index [BMI] 35.0-35.9, adult Vitamin D 25-OH Total Today E66.9 - Obesity, unspecified, Z68.35 - Body mass index [BMI] 35.0-35.9, adult US abdomen comp w elastography Today E66.9 - Obesity, unspecified, Z68.35 - Body mass index [BMI] 35.0-35.9, adult XR chest 2V Today E66.9 - Obesity, unspecified, Z68.35 - Body mass index [BMI] 35.0-35.9, adult IRON PROFILE Today E66.9 - Obesity, unspecified, Z68.35 - Body mass index [BMI] 35.0-35.9, adult Complete Blood Count Auto Diff Today E66.9 - Obesity, unspecified, Z68.35 - Body mass index [BMI] 35.0-35.9, adult Vitamin B12 and Folate Today E66.9 - Obesity, unspecified, Z68.35 - Body mass index [BMI] 35.0-35.9, adult Zinc Today E66.9 - Obesity, unspecified, Z68.35 - Body mass index [BMI] 35.0- 35.9, adult Vitamin B1 Today E66.9 - Obesity, unspecified, Z68.35 - Body mass index [BMI] 35.0-35.9, adult Vitamin A Today E66.9 - Obesity, unspecified, Z68.35 - Body mass index [BMI] 35.0-35.9, adult PTHI Today E66.9 - Obesity, unspecified, Z68.35 - Body mass index [BMI] 35.0- 35.9, adult Hemoglobin A1c Today E66.9 - Obesity, unspecified, Z68.35 - Body mass index [BMI] 35.0-35.9, adult ECG 12 lead EKG Today E66.9 - Obesity, unspecified, Z68.35 - Body mass index [BMI] 35.0-35.9, adult FL upper GI w air Today E66.9 - Obesity, unspecified, Z68.35 - Body mass index [BMI] 35.0-35.9, adult Referrals Nutrition/Dietitian Referral E66.9 - Obesity, unspecified, Z68.35 - Body mass index [BMI] 35.0-35.9, adult Behavioral Health Referral E66.9 - Obesity, unspecified, Z68.35 - Body mass index [BMI] 35.0-35.9, adult Telehealth Telehealth Location of provider rendering services: practice address Location of patient: address on file Patient Identification confirmed using: Name, : Yes Telehealth method: voice only Patient verbally consented to treatment: Yes Patient verbally consented to billing insurance company: Yes Patient informed of any privacy concerns related to visit: Yes Minutes spent on Phone/Video with Pt.: 39 Coding Level of Care Code Tele New Pt Level 3 (47197) Diagnoses Obesity (BMI 30-39.9) E66.9 Chronic low back pain with right-sided sciatica M54.41; G89.29 BMI 35.0-35.9,adult Z68.35 Time Spent (min) 39
[2023-01-16 12:57] VITALS: BMI 35.3
== END 2023-01-16 13:20 | disposition home or self-care (01) ==
LOC: HO.HBS 08:11
PROVIDERS: PCP Nurse Practitioner Family; Visit Provider Surgery
DX: E66.9 Obesity, unspecified (principal); M54.41 Lumbago with sciatica, right side; G89.29 Other chronic pain; Z68.35 Body mass index [BMI] 35.0-35.9, adult
CPT/HCPCS: 99203

== ENCOUNTER → 2023-01-16 08:11 | Outpatient (BNVA) | payer OTHER, SELFPAY | PROVIDERS: PCP Nurse Practitioner Family; Visit Provider Surgery ==

== ENCOUNTER 2023-01-31 08:59 | Outpatient (REF) | payer OTHER, SELFPAY ==
--- NOTE | ~2023-01-31 | XR_ITS ---
EXAMINATION: XR CHEST CLINICAL INFORMATION: Obesity COMPARISON: Previous chest x-ray June 2021 TECHNIQUE: 2 views of the chest were obtained. FINDINGS: No significant abnormality is noted involving the heart, lungs, mediastinum, bony thorax or soft tissues. XR/XR chest 2V IMPRESSION: Unremarkable examination.
[2023-01-31 09:27] LABS: MANUAL DIFF FLAG NO
[2023-01-31 09:44] LABS: Estimated Average Glucose 103 mg/dL; Hemoglobin A1c % 5.2 % (<6.0)
[2023-01-31 09:45] LABS: Basophils Percent Auto 0.4 % (0-2); Eosinophils Absolute Auto 0.1 X10*3/uL (0.0-0.4); Eosinophils Percent Auto 1.6 % (0-4); Hematocrit 42.2 % (37.0-47.0); Hemoglobin 13.6 g/dl (12.0-16.0); Imm Gran Abs Auto 0.03 X10*3/uL (0.00-0.03); Imm Gran Pct Auto 0.4 % (0.0-0.4); Lymphocytes Absolute Auto 1.4 X10*3/uL (1.2-4.9); Lymphocytes Percent Auto 17.3 % (20-40); Mean Corpuscular HGB Conc 32.2 g/dl (31.0-35.0); Mean Corpuscular Volume 80.7 fL (80.0-98.0); Mean Platelet Volume 10.7 fL (9.4-12.3); Monocytes Absolute Auto 0.6 X10*3/uL (0.1-1.2); Monocytes Percent Auto 7.7 % (2-11); Neutrophils Absolute Auto 6.1 x10*3/uL (2.0-8.3); Neutrophils Percent Auto 72.6 % (45-73); Platelet Count 242 X10*3/uL (160-400); Red Blood Count 5.23 X10*6/uL (4.20-5.50); White Blood Count 8.3 X10*3/uL (4.8-10.8)
[2023-01-31 10:29] LABS: Alanine Aminotransferase 14 U/L (0-31); Albumin Level 4.3 g/dL (3.5-5.0); Alkaline Phosphatase 66 U/L (39-117); Aspartate Amino Transferase 17 U/L (5-31); Bilirubin Total 0.5 mg/dL (0.0-1.0); Blood Urea Nitrogen 16 mg/dL (9-16); C Reactive Protein 0.69 mg/dL (< or = 0.50); Calcium 9.5 mg/dL (8.4-10.2); Chloride 107 mmol/L (96-108); Cholesterol 140 mg/dL (<200); Estimated Glomerular Filt Rate > 60; Glucose Random 97 mg/dL (60-115); HDL Cholesterol 35 mg/dL (>40); Iron 72 mcg/dL (30-160); LDL Cholesterol Calculated 92 mg/dL (<100); Percent Iron Saturation 24 % (15-50); Potassium 4.5 mmol/L (3.3-5.1); Sodium 139 mmol/L (135-145); Total Iron Binding Capacity 297 mcg/dL (228-428); Total Protein 7.9 g/dL (6.5-8.0); Triglycerides 66 mg/dL (<150); Unsaturated Iron Binding 225 ug/dL
[2023-01-31 10:41] LABS: Anion Gap 12 (12-20)
[2023-01-31 10:47] LABS: Ferritin 28 ng/mL (10-122); Insulin 8 uU/mL (2-29); TSH reflex Free T4 1.14 uIU/mL (0.32-4.0); Vitamin D 25-OH Total 39.6 ng/mL (>30)
[2023-01-31 10:55] LABS: Carbon Dioxide 23 mmol/L (22-29)
[2023-01-31 11:01] LABS: Folate 14.6 ng/mL (> or = 4.0); Vitamin B12 512 pg/mL (200-900)
[2023-02-03 14:43] LABS: Calcium (PTHI) 9.1 mg/dL (8.6-10.2); PTHI 29 pg/mL (16-77)
[2023-02-03 17:53] LABS: Zinc 90 mcg/dL (60-130)
[2023-02-05 11:00] LABS: Vitamin A 35 mcg/dL (38-98)
[2023-02-05 15:04] LABS: Vitamin B1 10 nmol/L (8-30)
== END 2023-01-31 09:00 | disposition home or self-care (01) ==
LOC: HO.LAB 08:59
PROVIDERS: PCP Nurse Practitioner Family; Visit Provider Surgery
DX: E66.9 Obesity, unspecified (principal); Z68.35 Body mass index [BMI] 35.0-35.9, adult
CPT/HCPCS: 36415; 71046; 80053; 80061; 82306; 82607; 82728; 82746; 83036; 83525; 83540; 83970; 84425; 84443; 84590; 84630; 85025; 86140

== ENCOUNTER 2023-02-02 14:47 | Outpatient (AMB) | payer OTHER, SELFPAY ==
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
[2023-02-02 15:02] VITALS: BP 122/70; PULSE 100; RESP 18; BMI 34.4
== END 2023-02-02 15:27 | disposition home or self-care (01) ==
PROVIDERS: PCP Nurse Practitioner Family; Visit Provider Anesthesiology
DX: M47.816 Spondylosis without myelopathy or radiculopathy, lumbar region (principal); E66.01 Morbid (severe) obesity due to excess calories; E66.9 Obesity, unspecified; G89.4 Chronic pain syndrome
CPT/HCPCS: 99203

== ENCOUNTER → 2023-02-02 14:47 | Outpatient (REF) | payer OTHER, SELFPAY ==
--- NOTE | 2023-02-02 15:40 | ECG_ITS ---
Test Reason : obesity Blood Pressure : / mmHG Vent. Rate : 076 BPM Atrial Rate : 076 BPM P-R Int : 128 ms QRS Dur : 084 ms QT Int : 368 ms P-R-T Axes : 055 068 036 degrees QTc Int : 414 ms Normal sinus rhythm Normal ECG No previous ECGs available Referred By: Gil Garcia Electronically Signed By:ALLEGRA MONTE
== END ==
LOC: HO.CARD 14:47
PROVIDERS: Absent Provider Surgery; PCP Nurse Practitioner Family; Visit Provider Anesthesiology
DX: M47.816 Spondylosis without myelopathy or radiculopathy, lumbar region (principal); E66.01 Morbid (severe) obesity due to excess calories; Z68.35 Body mass index [BMI] 35.0-35.9, adult; E66.9 Obesity, unspecified; G89.4 Chronic pain syndrome
CPT/HCPCS: 93005

== ENCOUNTER 2023-02-03 07:56 | Outpatient (REF) | payer OTHER, SELFPAY ==
[2023-02-06 14:00] LABS: H Pylori Breath Test Negative (Negative)
== END 2023-02-03 07:57 | disposition home or self-care (01) ==
LOC: HO.LNP 07:56
PROVIDERS: PCP Nurse Practitioner Family; Visit Provider Surgery
DX: E66.9 Obesity, unspecified (principal); Z11.0 Encounter for screening for intestinal infectious diseases; Z68.35 Body mass index [BMI] 35.0-35.9, adult
CPT/HCPCS: 83013; 99211

== ENCOUNTER 2023-02-13 10:34 | Outpatient (AMB) | payer OTHER, SELFPAY ==
--- NOTE | 2023-02-13 12:11 | A.OFFVIS_ITS ---
Intake VS Expanded 02/13/23 13:22 Height 5 ft 3 in Weight 191 lb 4 oz BMI 33.9 Body Fat % 42.4 Body Fat Mass 81.1 Fat Free Mass 110.2 Visceral Fat Rating 16 Body Water % 39.5 Body Water Mass 75.6 Basal Metabolic Rate/Score 1,464 Intake Visit Reasons: TV Follow Up SWL - 1ST Allergies No Known Allergies [No Known Allergies*] Allergy (Verified 02/02/23 15:00) HPI TV Follow Up SWL - 1ST HPI Details ?I spent 15 minutes speaking with the patient on the phone plus an additional 5 minutes reviewing and updating records for a total of 20 minutes HPI Comments History of Present Illness Details Overall weight loss: 8lbs, or 4% TBWL Is doing 2 Celerbrate REBUILD protein shakes (1/2 scoop in 8oz almond milk), 2 Celebrate protein bars and one meal (8 forks of protein and 8 forks of salad or vegetables) Exercise: Gym x1-2/wk doing bike for 250 calories and home aerobic work-out x5 per week for 300 calories [facility] Medical History History of lipoma Nasal congestion Sinusitis Surgical History History of bilateral breast reduction surgery History of bilateral salpingectomy History of section Family History Maternal Grandmother Diabetes Hypertension Glaucoma Maternal Grandfather Diabetes Hypertension Maternal Aunt Breast cancer Social History Housing: House Alcohol intake: never Patient Tobacco Use Status: Never used Tobacco e-Cigarette/Vaping Use: Never Used Second Hand Smoke Exposure: No service: No 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 Continue same nutritional plan of 2 Celerbrate REBUILD protein shakes (1/2 scoop in 8oz almond milk), 2 Celebrate protein bars and one meal (8 forks of protein and 8 forks of salad or vegetables) 2. Exercise: increase Gym to 2 days per week doing the stationary bike increasing to 300 calories per work-out and home aerobic work-out x5 per week for 300 calories 3. Alternatively purchase a stationary bike, elliptical or treadmill at home that can track calories. Let me know if you do so I can give you an exercise plan. 4. Continue to send me weight measurements weekly on Mondays (2) BMI 33.0-33.9,adult: Code(s): Z68.33 - Body mass index [BMI] 33.0-33.9, adult Medications: New vitamin A palmitate 10,000 units PO DAILY 30 caps 1RF E50.9 - Vitamin A deficiency, unspecified Telehealth Telehealth Location of provider rendering services: practice address Location of patient: address on file Patient Identification confirmed using: Name, : Yes Telehealth method: voice only Patient verbally consented to treatment: Yes Patient verbally consented to billing insurance company: Yes Patient informed of any privacy concerns related to visit: Yes Minutes spent on Phone/Video with Pt.: 20 Coding Level of Care Code Tele Est Pt Level 3 (22159) Diagnoses Obesity (BMI 30-39.9) E66.9 BMI 33.0-33.9,adult Z68.33 Time Spent (min) 20
[2023-02-13 13:22] VITALS: BMI 33.9
== END 2023-02-13 13:32 | disposition home or self-care (01) ==
LOC: HO.HBS 10:34
PROVIDERS: PCP Nurse Practitioner Family; Visit Provider Surgery
DX: E66.9 Obesity, unspecified (principal); Z68.33 Body mass index [BMI] 33.0-33.9, adult
CPT/HCPCS: 99213

== ENCOUNTER → 2023-02-13 10:34 | Outpatient (BNVA) | payer OTHER, SELFPAY | PROVIDERS: PCP Nurse Practitioner Family; Visit Provider Surgery ==

== ENCOUNTER 2023-02-18 14:25 | Outpatient (AMB) | payer OTHER, SELFPAY ==
--- NOTE | 2023-02-18 14:23 | MHC.WMTHER ---
Intake Intake Visit Reasons: VIDEO BH Intake Allergies No Known Allergies [No Known Allergies*] Allergy (Verified 02/02/23 15:00) [facility] Medical History History of lipoma Nasal congestion Sinusitis Surgical History History of bilateral breast reduction surgery History of bilateral salpingectomy History of section Family History Maternal Grandmother Diabetes Hypertension Glaucoma Maternal Grandfather Diabetes Hypertension Maternal Aunt Breast cancer Social History Housing: House Alcohol intake: never Patient Tobacco Use Status: Never used Tobacco e-Cigarette/Vaping Use: Never Used Second Hand Smoke Exposure: No service: No 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: 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 She reported having sig. problems with her back and recently found out she has arthritis. She denied any mental health issues and no treatment history in the past. She is not in therapy. Presenting Concerns Referral Source provider Reason for referral weight loss surgery evaluation Precipitating Event obesity Living Situation Current Living Situation Own At risk of losing current housing? No Satisfied with current living situation? Yes Comments Pt lives with her two children. Food/Weight/Diet Expectations of change weight loss and maintenance History/Relationship with food Pt stated that she thinks that portion control has been a struggle. Going through stress after breakup with her kids father, she would reach more for sweets. Pt stated that she has a sweet tooth. Pt stated that she was raised by her grandmother and ate typical food. She believes she may have been a big snacker. History/Relationship with weight Pt reported that she has struggled with her weight most of her life. History/Relationship with dieting Pt stated that she has invested a lot of money on different program and diets. keto, went down to 170lbs Binge Eating Do you frequently eat large amounts of food in short periods of time, not feeling physically hungry? No Do you feel out of control when you eat a large amount of food in a short period of time? No Do you eat large amounts of food rapidly and typically alone? Yes Night Eating Do you wake up at least once during the night to eat? No If you wake up in the night, do you find that it is necessary to eat something in order to fall back asleep? No Do you have little or no appetite in the morning and feel very hungry in the evening, often overeating between dinner and when you go to bed? 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 Developmental history and status no issues Social support mom, two close friends Cultural/Ethnic information Legal Involvement and History Current or historical involvement with the legal system? no issues reported Education Highest grade completed college Preferred learning style Auditory, Verbal, Written, Learn by doing and Visual Currently enrolled in educational program? No Interested in further educational program? 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 No Meaningful activities socializing, dinner with friends, shopping, listening to music, reading Financial Situation Describe current financial situation Comfortable Financial assistance? None Service Service? No Mental Health and Addiction Treatment Current/Past substance abuse? No Current/Past addictive behavior concerns? No Medical and Physical Health Summary Physical exam in the last year? No Pain Screening Current pain? No Pain in the last few months? No Medications Is the patient compliant with medications? Yes Does the patient have Polo Guardian in place? Not applicable Does the patient use complimentary health approaches? No Trauma/Abuse History History of trauma? No Questionnaires PHQ-9 Over the last 2 weeks, how often have you been bothered by any of the following problems? 1. Little interest or pleasure in doing things: not at all 2. Feeling down, depressed, or hopeless: not at all 3. Trouble falling or staying asleep, or sleeping too much: several days 4. Feeling tired or having little energy: several days 5. Poor appetite or overeating: not at all 6. Feeling bad about yourself - or that you are a failure or have let yourself or your family down: not at all 7. Trouble concentrating on things, such as reading the newspaper or watching television: not at all 8. Moving or speaking so slowly that other people could have noticed. Or the opposite - being so fidgety or restless that you have been moving around a lot more than usual: not at all 9. Thoughts that you would be better off or of hurting yourself in some way: not at all Total score: 2 Source: Developed by Drs. Edouard Morales, Adrienne Tate, Jf Ann and colleagues, with an educational julián from [employer]. Binge Eating Scale Group 1 A. I don't feel self-conscious about my wt. or body size when I'm with others. B. I feel concerned about how I look to others, but it normally does not make me fell disappointed with myself C. I do get self-conscious about my appearance and wt. which makes me feel disappointed in myself. D. I feel very self-conscious about my wt. and frequently I feel intense shame and disgust for myself. I try to avoid social contacts because of my self-consciousness. Response Group 1: B Group 2 A. I don't have any difficulty eating slowly in the proper manner. B. Although I seem to gobble down foods, I don't end up feeling stuffed because of eating to much. C. At times, I tend to eat quickly and then, I feel uncomfortably full afterwards. D. I have the habit of bolting down my food, without really chewing it. When this happens I usually feel uncomfortably stuffed because I've eaten to much. Response Group 2: C Group 3 A. I feel capable to control my eating urges when I want to. B. I feel like I have failed to control my eating more than the average person. C. I feel utterly helpless when it comes to feeling in control of my eating urges. D. Because I feel so helpless about controlling my eating I have become very desperate about trying to get control. Response Group 3: A Group 4 A. I don't have the habit of eating when I'm bored. B. I sometimes eat when I'm bored, but often I'm able to get busy and get my mind off food. C. I have a regular habit of eating when I'm bored, but occasionally, I can use some other activity to get my mind off eating. D. I have a strong habit of eating when I'm bored. Nothing seems to help me breath the habit. Response Group 4: B Group 5 A. I'm usually physically hungry when I eat something. B. Occasionally, I eat something on impulse even though I really am not hungry. C. I have the regular habit of eating foods, that I might not really enjoy, to satisfy a hungry feeling even though physically, I don't need the food. D. Although I'm not physically hungry, I get a hungry feeling in my mouth that only seems to be satisfied when I eat a food, like sandwich, that fills my mouth. Sometimes, when I eat the food to satisfy my mouth hunger, I then spit the food out so I won't gain weight. Response Group 5: A Group 6 A. I don't feel any guilt or self-hate after I overeat. B. After I overeat, occasionally I feel guilt or self-hate. C. Almost all the time I experience strong guilt or self-hate after I overeat. Response Group 6: B Group 7 A. I don't lose total control of my eating when dieting even after periods when I overeat. B. Sometimes when I eat a forbidden food on a diet, I feel like I blew it and eat even more. C. Frequently, I have the habit of saying to myself, I've blown it now, why not go all the way, when I overeat on a diet. When that happens I eat more. D. I have a regular habit of starting a strict diets for myself but I break the diets by going on an eating binge. My life seems to be either a feast or famine. Response Group 7: B Group 8 A. I rarely eat so much food that I feel uncomfortably stuffed afterwards. B. Usually about once a month, I each such a quantity of food, I end up feeling very stuffed. C. I have regular periods during the month when I eat large amounts of food, either at mealtime or at snacks. D. I eat so much food that I regularly feel quite uncomfortable after eating and sometimes a bit nauseous. Response Group 8: B Group 9 A. My level of calorie intake does not go up very high or go down very low on a regular basis. B. Sometimes after I overeat, I will try to reduce my caloric intake to almost nothing to compensate for the excess calories I've eaten. C. I have a regular habit of overeating during the night. It seems that my routine is not to be hungry in the morning but overeat in the evening. D. In my adult years, I have had week-long periods where I practically starve myself. This follows periods when I overeat. It seems I live a life of either feast or famine. Response Group 9: B Group 10 A. I usually am able to stop eating when I want to. I know when enough is enough. B. Every so often, I experience a compulsion to eat which I can't seem to control. C. Frequently, I experience strong urges to eat which I seem unable to control, but at other times I can control my eating urges. D. I feel incapable of controlling urges to eat. I have a fear of not being able to stop eating voluntarily. Response Group 10: A Group 11 A. I don't have any problem stopping eating when I feel full. B. I usually can stop eating when I feel full but occasionally overeat leaving me feeling uncomfortably stuffed. C. I have a problem stopping eating once I start and usually I feel uncomfortably stuffed after I eat a meal. D. Because I have a problem not being able to stop eating when I want, I sometimes have to induce vomiting to relieve my stuffed feeling. Response Group 11: A Group 12 A. I seem to eat just as much when I'm with others, Family social gatherings as when I'm by myself. B. Sometimes, when I'm with other persons, I don't eat as much as I want to eat because I'm self-conscious about my eating. C. Frequently, I eat only a small amount of food when others are present, because I'm very embarrassed about my eating. D. I feel so ashamed about overeating that I pick times to overeat when I know no one will see me. I feel like a closet eater. Response Group 12: A Group 13 A. I eat three meals a day with only an occasional between meal snack. B. I eat 3 meals a day, but I also normally snack between meals. C. When I am snacking heavily, I get in the habit of skipping regular meals. D. There are regular periods when I seem to be continually eating, with no planned meals. Response Group 13: A Group 14 A. I don't think much about trying to control unwanted eating urges. B. At least some of the time, I feel my thoughts are pre-occupied with trying to control my eating urges. C. I feel that frequently I spend much time thinking about how much I ate or about trying not to eat anymore. D. It seems to me that most of my waking hours are pre-occupied by thoughts about eating or not eating. I feel like I'm constantly struggling not to eat. Response Group 14: B Group 15 A. I don't think about food a great deal. B. I have strong craving for food but they last only for brief periods of time. C. I have days when I can't seem to think about anything else but food. D. Most of my days seem to be pre-occupied with thoughts about food. I feel like I live to eat. Response Group 15: B Group 16 A. I usually know whether or not I'm physically hungry. I take the right portion of food to satisfy me. B. Occasionally, I feel uncertain about knowing whether or not I'm physically hungry. A these times it's hard to know how much food I should take to satisfy me. C. Even though I might know how many calories I should eat, I don't have any idea what is a normal amount of food for me. Response Group 16: A Binge Eating Score: 10 Score less than 17 Minimal Risk Score between 18-26 Moderate Risk Score between 27-46 High Risk Assessment & Plan Assessment & Plan (1) Adjustment disorder, unspecified: Code(s): F43.20 - Adjustment disorder, unspecified Plan Patient has no serious mental health barriers. She is cleared for surgery when ready. Telehealth Telehealth Location of provider rendering services: practice address Location of patient: other Patient Identification confirmed using: Name, : Yes Telehealth method: video Patient verbally consented to treatment: Yes Patient verbally consented to billing insurance company: Yes Patient informed of any privacy concerns related to visit: Yes Minutes spent on Phone/Video with Pt.: 45 Coding Level of Care Code Tele Psy Diag Eval ([id number]) Diagnoses Adjustment disorder, unspecified F43.20 Time Spent (min) 45
== END 2023-02-18 14:58 | disposition home or self-care (01) ==
LOC: HO.HBST 14:25
PROVIDERS: PCP Nurse Practitioner Family; Visit Provider Counselor Mental Health
DX: F43.20 Adjustment disorder, unspecified (principal)
CPT/HCPCS: 90791

== ENCOUNTER → 2023-02-18 14:25 | Outpatient (BNVA) | payer OTHER, SELFPAY | PROVIDERS: PCP Nurse Practitioner Family; Visit Provider Counselor Mental Health ==

== ENCOUNTER 2023-02-23 08:22 | Outpatient (REF) | payer OTHER, SELFPAY ==
--- NOTE | ~2023-02-23 | US_ITS ---
EXAMINATION: US COMPLETE ABDOMEN WITH LIVER ELASTOGRAPHY CLINICAL INFORMATION: Obesity. COMPARISON: Abdominal ultrasound dated 06/04/2021. TECHNIQUE: Real-time imaging of the abdominal viscera. Noninvasive ultrasound liver fibrosis assessment is performed using Basil ElastPQ point quantification shear wave elastography (2D-SWE) with a C5-2 MHz transducer. Multiple elastography samples are obtained. FINDINGS: PANCREAS: Normal. The visualized pancreatic head and body are normal in appearance. The remainder of the pancreas is obscured from visualization by the overlying bowel gas. ABDOMINAL AORTA: The proximal, middle, and distal aortic segments are normal in caliber. INFERIOR VENA CAVA: Visualized portions are normal. LIVER: Normal. The liver demonstrates normal size, contour and echogenicity. No focal lesion or intrahepatic biliary duct dilatation. The right lobe measures 14.5 cm in length. The left lobe measures 8.7 cm in length. Portal flow is towards the liver (hepatopetal). Shear wave liver elastography median stiffness is 1.15 m/s (reference: normal median stiffness is 1.3 m/s or less). IQR/median stiffness to assess sampling precision is 0.9 (reference: good quality data set is IQR/median stiffness of 0.15 or less). GALLBLADDER: Normal. The gallbladder is physiologically distended without evidence of stones, sludge, polyps, wall thickening or pericholecystic fluid. COMMON BILE DUCT: Normal in caliber measuring 0.2 cm in diameter. RIGHT KIDNEY: Normal. No hydronephrosis. No renal calculi or focal parenchymal lesions. The kidney measures 11.5 cm in maximum dimension. LEFT KIDNEY: Normal. No hydronephrosis. No renal calculi or focal parenchymal lesions. The kidney measures 11.2 cm in maximum dimension. SPLEEN: Normal. The spleen measures 10.4 cm in maximum dimension. FREE FLUID: None. US/US abdomen comp w elastography IMPRESSION: Liver elastography: Measurements are consistent with a high probability of normal liver stiffness. REFERENCE: Society of Radiologists in Ultrasound Liver Stiffness Thresholds (2020): LIVER STIFFNESS THRESHOLDS: *Liver Stiffness equal or less than 1.3 m/s: High probability of being normal. *Liver Stiffness less than 1.7 m/s: In the absence of other known clinical signs, rules out compensated advanced chronic liver disease. *Liver Stiffness 1.7-2.1 m/s: Suggestive of compensated advanced chronic liver disease but need further test for confirmation. *Liver Stiffness over 2.1 m/s: Rules in compensated advanced chronic liver disease. *Liver Stiffness over 2.4 m/s: Suggestive of clinically significant portal hypertension. QUALITY OF DATA SET: *IQR/Median value equal or less than 0.15 implies a quality data set. *IQR/Median value over 0.15 implies a poor quality data set. SIGNIFICANT CHANGE FROM PRIOR EXAM: Significant change if liver stiffness measurement is 10% or greater from prior exam. OTHER CONSIDERATIONS: The stage of liver fibrosis may be overestimated in the setting of acute hepatitis, liver inflammation, elevated liver function tests, hepatic vascular congestion, obstructive cholestasis, non-fasting state, and infiltrative diseases such as amyloidosis and lymphoma. In some patients with NAFLD, the liver stiffness thresholds for compensated advanced chronic liver disease may be lower. In causes other than viral hepatitis and NAFLD, liver stiffness thresholds are not well established.
== END 2023-02-23 08:23 | disposition home or self-care (01) ==
LOC: HO.US 08:22
PROVIDERS: Visit Provider Surgery
DX: E66.9 Obesity, unspecified (principal); Z68.35 Body mass index [BMI] 35.0-35.9, adult
CPT/HCPCS: 76705; 76981

== ENCOUNTER 2023-02-24 06:14 | Outpatient (REF) | payer OTHER, SELFPAY ==
--- NOTE | ~2023-02-24 | FL_ITS ---
EXAMINATION: XR FLUOROSCOPY WITH IMAGES CLINICAL INFORMATION: On the lordosis without myelopathy or radiculopathy, lumbar region. Right lumbar injection. COMPARISON: None available. TECHNIQUE: Fluoroscopy Supervised By: Dr. Carmelo Murdock. Fluoroscopy Time: 0.4 minutes. Cumulative Dose: 4.68 mGy. DAP: 0.0813 Gycm2. Images: 3. FINDINGS: Images demonstrate needle placement and contrast injection adjacent to right lateral L3 and bilateral lateral L5 vertebrae FL/FL guidance in treatment room IMPRESSION: Fluoroscopy guidance for pain management procedure
== END 2023-02-24 06:15 | disposition home or self-care (01) ==
LOC: CF 06:14
PROVIDERS: Visit Provider Anesthesiology
DX: M47.816 Spondylosis without myelopathy or radiculopathy, lumbar region (principal); E66.01 Morbid (severe) obesity due to excess calories; G89.4 Chronic pain syndrome
CPT/HCPCS: 64493; 64494; J2795; Q9967

== ENCOUNTER 2023-02-24 14:20 | Outpatient (AMB) | payer OTHER, SELFPAY ==
[2023-02-24 14:26] VITALS: BP 122/70; PULSE 83; RESP 18; O2SAT 96; BMI 33.7
--- NOTE | 2023-02-24 14:26 | A.OFFVIS_ITS ---
Intake Vital Signs 02/24/23 14:26 02/24/23 15:18 Height 5 ft 3 in 5 ft 3 in Weight 190 lb 190 lb BMI 33.7 33.7 BP 122/70 120/76 Blood Pressure Location Rt brachial Lt brachial Position Sitting Sitting Respiration 18 18 Pulse 83 86 Pulse Source Pulse Oximeter Pulse Oximeter Pulse Oximetry (%) 96 99 Oxygen Delivery Method Room Air Room Air Comment Pre-Op Post-Op Intake Visit Reasons: R L3-L4-DRL5 DX MBB/LOCAL Allergies No Known Allergies [No Known Allergies*] Allergy (Verified 02/02/23 15:00) [facility] Medical History History of lipoma Nasal congestion Sinusitis Surgical History History of bilateral breast reduction surgery History of bilateral salpingectomy History of section Family History Maternal Grandmother Diabetes Hypertension Glaucoma Maternal Grandfather Diabetes Hypertension Maternal Aunt Breast cancer Social History Housing: House Alcohol intake: never Patient Tobacco Use Status: Never used Tobacco e-Cigarette/Vaping Use: Never Used Second Hand Smoke Exposure: No service: No 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: 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 Hearing needs: No Vision needs: Yes (glasses and contacts) Female Reproductive History Menstrual Age of Menarche: 13 Physical Exam Vital Signs: Last Vital Signs Pulse 86 02/24/23 15:18 Resp 18 02/24/23 15:18 BP 120/76 02/24/23 15:18 Pulse Ox 99 02/24/23 15:18 Oxygen Delivery Method Room Air 02/24/23 15:18 BMI result Body Mass Index 33.7 Assessment & Plan Assessment & Plan (1) Spondylosis of lumbar region without myelopathy or radiculopathy: Code(s): M47.816 - Spondylosis without myelopathy or radiculopathy, lumbar region Plan: Diagnostic medial branch block L3,L4 dorsal ramus L5 on the right. ? ?Informed consent was explained to the patient. All questions were explained and? answered.? The patient was taken inside the operating room where she was positioned prone on the operating table. Time-out was performed delineating correct site, side, the nature of the procedure, patient's allergy, . All operating room staff was participating in OR time-out procedure. ? ? The lower back was prepped with ChloraPrep and draped with sterile towels.? C- arm was brought over the operating field and sq picture of L4-, L5 vertebra and S1 AREA were delineated on the screen.? Point of interest were delineated as confluence of superior articular process of L4 and L5 vertebra on the right with corresponding transverse processes as well as confluence of the sacral alae on the right with superior articular process of S1.? The projection of the point of interest to the skin were injected with the small amount of local anesthetic lidocaine 2% 1-1.5 cc.? After that 22 gauge 3.5 inch spinal needle was driven sequentially to the points of interest in tunnel vision fashion. After needles gently contacted the bone at the point of interests the needle was injected with small amount of the contrast.? The injection of the contrast did not demonstrate any intravascular or intrathecal spread of the contrast.? After that injection of the? ropivacaine 0.5%-1cc was performed at each needle location.??after that the needles were removed and Bandaids were applied. ? Upon completion of the injections? needle was? removed and sterile Band-Aids were applied.? The patient tolerated procedure very well. (2) Morbid obesity: Code(s): E66.01 - Morbid (severe) obesity due to excess calories (3) Obesity (BMI 30-39.9): Code(s): E66.9 - Obesity, unspecified (4) Chronic pain syndrome: Code(s): G89.4 - Chronic pain syndrome Plan Spondylolisthesis and spondylolysis could be source of this patient pain. I will diagnose this patient for now for spondylosis without myelopathy or radiculopathy. I will schedule her for diagnostic right-sided medial branch block L3-L4 does ramus L5. The procedure will be done without sedation. After that I will make a decision on what mode of treatment to offered this patient to treat her pain. She has addressing her obesity with a weight loss program. Her LFTs were normal on last Chem 20. Orders: Orders FL guidance in treatment room 02/24/23 M47.816 - Spondylosis without myelopathy or radiculopathy, lumbar region Coding Level of Care Code Procedure Only Diagnoses Spondylosis of lumbar region without myelopathy or radiculopathy M47.816 Morbid obesity E66.01 Obesity (BMI 30-39.9) E66.9 Chronic pain syndrome G89.4
[2023-02-24 15:18] VITALS: BP 120/76; PULSE 86; RESP 18; O2SAT 99; BMI 33.7
== END 2023-02-24 15:15 | disposition home or self-care (01) ==
LOC: HO.PMCPRC 14:20
PROVIDERS: PCP Nurse Practitioner Family; Visit Provider Anesthesiology
DX: M47.816 Spondylosis without myelopathy or radiculopathy, lumbar region (principal); G89.4 Chronic pain syndrome
CPT/HCPCS: 64493; 64494

== ENCOUNTER 2023-02-25 10:55 | Outpatient (AMB) | payer OTHER, SELFPAY ==
--- NOTE | 2023-02-25 10:38 | A.OFFVIS_ITS ---
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 Garcia consistently and doing well with it. 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 Previous weight loss methods attempted IF Dietary counseling reduction Who buys your food self Who prepares/cooks your food self Meal frequency regular: lunch (salad with chicken , or rice and veggies and chicken) and dinner, irregular: snacks and never: breakfast Diagnosis Nutrition problem #1 overweight/obesity As related to (etiology) #1 excess energy intake and physical inactivity As evidenced by (sign/symptom) #1 high BMI Monitoring/Goals Nutrition problem monitoring total energy intake, level of knowledge/skill, total PRO intake, total CHO intake, weight and oral fluids Outcome progress progressing Learning/Education Readiness to learn excellent Stages of change action Educational materials provided Yes Most Recent Diabetes Results: Cholesterol 140 mg/dL (<200) 01/31/23 HDL Cholesterol 35 mg/dL (>40) L 01/31/23 Triglycerides 66 mg/dL (<150) 01/31/23 Creatinine 0.70 mg/dL (0.5-1.4) 01/31/23 Blood Urea Nitrogen 16 mg/dL (9-16) 01/31/23 Sodium 139 mmol/L (135-145) 01/31/23 Potassium 4.5 mmol/L (3.3-5.1) 01/31/23 Chloride 107 mmol/L (96-108) 01/31/23 Carbon Dioxide 23 mmol/L (22-29) 01/31/23 Calcium 9.5 mg/dL (8.4-10.2) 01/31/23 AST 17 U/L (5-31) 01/31/23 ALT 14 U/L (0-31) 01/31/23 Total Protein 7.9 g/dL (6.5-8.0) 01/31/23 Albumin 4.3 g/dL (3.5-5.0) 01/31/23 [facility] Medical History History of lipoma Nasal congestion Sinusitis Surgical History History of bilateral breast reduction surgery History of bilateral salpingectomy History of section Family History Maternal Grandmother Diabetes Hypertension Glaucoma Maternal Grandfather Diabetes Hypertension Maternal Aunt Breast cancer Social History Housing: House Alcohol intake: never Patient Tobacco Use Status: Never used Tobacco e-Cigarette/Vaping Use: Never Used Second Hand Smoke Exposure: No service: No 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: 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 Educational requirements have been completed. Reviewed vitamin supplementation and commitment to protein shake for several months post surgery. Encouraged communication with office as needed Telehealth Telehealth Location of provider rendering services: practice address Location of patient: address on file Patient Identification confirmed using: Name, : Yes Telehealth method: video Patient verbally consented to treatment: Yes Patient verbally consented to billing insurance company: Yes Patient informed of any privacy concerns related to visit: Yes Minutes spent on Phone/Video with Pt.: 20 Coding Level of Care Code Nutr Indiv Intake (47091) Diagnoses Obesity (BMI 30-39.9) E66.9 Time Spent (min) 20
[2023-02-25 10:43] VITALS: BMI 33.1
== END 2023-02-25 11:07 | disposition home or self-care (01) ==
LOC: HO.HBS 10:55
PROVIDERS: PCP Nurse Practitioner Family; Visit Provider Dietitian, Registered
DX: E66.9 Obesity, unspecified (principal)

== ENCOUNTER → 2023-02-25 10:55 | Outpatient (BNVA) | payer OTHER, SELFPAY | PROVIDERS: PCP Nurse Practitioner Family; Visit Provider Dietitian, Registered | DX: E66.9 Obesity, unspecified (principal); Z68.33 Body mass index [BMI] 33.0-33.9, adult; Z71.3 Dietary counseling and surveillance | CPT/HCPCS: 97802 ==

== ENCOUNTER 2023-02-26 08:19 | Outpatient (AMB) | payer OTHER, SELFPAY ==
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
[2023-02-26 08:30] VITALS: BP 116/82; PULSE 88; RESP 18; O2SAT 100; BMI 33.7
== END 2023-02-26 08:44 | disposition home or self-care (01) ==
PROVIDERS: PCP Nurse Practitioner Family; Visit Provider Anesthesiology
DX: M47.816 Spondylosis without myelopathy or radiculopathy, lumbar region (principal); E66.01 Morbid (severe) obesity due to excess calories; E66.9 Obesity, unspecified; G89.4 Chronic pain syndrome; M54.51 Vertebrogenic low back pain
CPT/HCPCS: 99214

== ENCOUNTER → 2023-02-26 08:19 | Outpatient (BNVA) | payer OTHER, SELFPAY | PROVIDERS: PCP Nurse Practitioner Family; Visit Provider Anesthesiology ==

== ENCOUNTER 2023-03-16 08:18 | Outpatient (AMB) | payer OTHER, SELFPAY ==
--- NOTE | 2023-03-16 09:05 | MHC.OFFVISWM ---
Intake VS Expanded 03/16/23 09:12 Height 5 ft 3 in Weight 181 lb 8 oz BMI 32.1 Body Fat % 39.8 Body Fat Mass 72.3 Fat Free Mass 109.6 Visceral Fat Rating 14 Body Water % 41.3 Body Water Mass 75 Basal Metabolic Rate/Score 1,439 Intake Visit Reasons: TV Follow Up SWL Allergies No Known Allergies [No Known Allergies*] Allergy (Verified 02/26/23 08:31) HPI TV Follow Up SWL HPI Details Start time: 9.02am, End time: 9.19am ?I spent 15 minutes speaking with the patient on the phone plus an additional 2 minutes reviewing and updating records for a total of 17 minutes HPI Comments History of Present Illness Details Overall weight loss: 17.6lbs, or 8.83% TBWL Is doing 2 Celebrate Rebuild protein shakes (1/2 scoop in almond milk), 2 Celebrate protein bars and one meal (8 forkfuls of protein and 8 forks of salad or vegetables) Exercise: home YouTube exercise videos [facility] Medical History History of lipoma Nasal congestion Sinusitis Surgical History History of bilateral breast reduction surgery History of bilateral salpingectomy History of section Family History Maternal Grandmother Diabetes Hypertension Glaucoma Maternal Grandfather Diabetes Hypertension Maternal Aunt Breast cancer Social History Housing: House Alcohol intake: never Patient Tobacco Use Status: Never used Tobacco e-Cigarette/Vaping Use: Never Used Second Hand Smoke Exposure: No service: No 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 Continue same nutritional plan of 2 Celebrate Rebuild protein shakes (1/2 scoop in almond milk), 2 Celebrate protein bars and one meal (8 forkfuls of protein and 8 forks of salad or vegetables) 2. Exercise: Try to increase the exercise at the Gym doing a minimum of 400 calories per work-out in aerobic exercise. The remaining of the days, continue the home YouTube exercise videos 3. Please purchase a stationary bike, elliptical or treadmill at home that can track calories. Let me know if you do so I can give you an exercise plan. 4. Continue to send me weight measurements weekly on Mondays (2) BMI 32.0-32.9,adult: Code(s): Z68.32 - Body mass index [BMI] 32.0-32.9, adult Telehealth Telehealth Location of provider rendering services: practice address Location of patient: address on file Patient Identification confirmed using: Name, : Yes Telehealth method: voice only Patient verbally consented to treatment: Yes Patient verbally consented to billing insurance company: Yes Patient informed of any privacy concerns related to visit: Yes Minutes spent on Phone/Video with Pt.: 17 Coding Level of Care Code Tele Est Pt Level 2 (59842) Diagnoses Obesity (BMI 30-39.9) E66.9 BMI 32.0-32.9,adult Z68.32 Time Spent (min) 17
[2023-03-16 09:12] VITALS: BMI 32.1
== END 2023-03-16 09:20 | disposition home or self-care (01) ==
LOC: HO.HBS 08:18
PROVIDERS: PCP Nurse Practitioner Family; Visit Provider Surgery
DX: E66.9 Obesity, unspecified (principal); Z68.32 Body mass index [BMI] 32.0-32.9, adult
CPT/HCPCS: 99212

== ENCOUNTER → 2023-03-16 08:18 | Outpatient (BNVA) | payer OTHER, SELFPAY | PROVIDERS: PCP Nurse Practitioner Family; Visit Provider Surgery ==

== ENCOUNTER 2023-04-06 08:43 | Outpatient (REF) | payer OTHER, SELFPAY ==
--- NOTE | ~2023-04-06 | FL_ITS ---
EXAMINATION: XR FLUOROSCOPY UPPER GI WITH AIR CLINICAL INFORMATION: Preop evaluation prior to bariatric surgery COMPARISON: None TECHNIQUE: Fluoroscopic air contrast upper GI examination was performed utilizing standard techniques with thin and thick barium and effervescent granules. Numerous spot images were obtained. FINDINGS: Dual and single contrast images of the esophagus demonstrate normal caliber, contour, and mucosal pattern. No evidence of stricture, mass, or ulcerations identified. Esophageal peristalsis was normal. No evidence of hiatus hernia identified. No significant gastroesophageal reflux was seen during the course of the examination and on reflux views. Dual contrast and single contrast images of the stomach demonstrated normal contour and mucosal pattern without evidence of mass, ulceration, or other abnormality. Contrast freely passed into the gastric antrum and duodenal bulb without delay. Single and air-contrast images of the duodenal bulb demonstrate no abnormality. The duodenal sweep has a normal appearance, course, and mucosal fold appearance. The imaged proximal jejunum has a normal fold pattern and caliber. FLUOROSCOPY TIME: 2 minutes 58 seconds Number of Spot Images: 12 Number of Cine: 5 DOSE AREA PRODUCT: 2068 uGy-m2 (microgray-meter squared) FL/FL upper GI w air IMPRESSION: Unremarkable examination. This procedure was performed by Jeff Ulrich PA-C, and supervised by Dr. Pompa
== END 2023-04-06 08:44 | disposition home or self-care (01) ==
LOC: HO.XRAY 08:43
PROVIDERS: PCP Nurse Practitioner Family; Visit Provider Surgery
DX: E66.9 Obesity, unspecified (principal); Z68.35 Body mass index [BMI] 35.0-35.9, adult
CPT/HCPCS: 74246

== ENCOUNTER → 2023-04-06 08:46 | Outpatient (BNV) | payer OTHER, SELFPAY | PROVIDERS: PCP Nurse Practitioner Family; Visit Provider Radiology Diagnostic Radiology | DX: E66.9 Obesity, unspecified (principal); Z68.35 Body mass index [BMI] 35.0-35.9, adult; Z01.818 Encounter for other preprocedural examination | CPT/HCPCS: 74246 ==

== ENCOUNTER 2023-04-13 08:19 | Outpatient (AMB) | payer OTHER, SELFPAY ==
--- NOTE | 2023-04-13 09:15 | A.OFFVIS_ITS ---
Intake Intake Visit Reasons: TV Follow Up SWL Allergies No Known Allergies [No Known Allergies*] Allergy (Verified 02/26/23 08:31) HPI TV Follow Up SWL HPI Details Start time: 9.10am, End time: 9.34am ?I spent 19 minutes speaking with the patient on the phone plus an additional 5 minutes reviewing and updating records for a total of 22 minutes HPI Comments History of Present Illness Details Overall weight loss: 20.6lbs, or 10.33% TBWL Is doing two Celebrate Rebuild protein shakes (1/2 scoop in 8oz almond milk), 2 Celebrate bars and one meal (8 forks of meat and 8 forks of salad or vegetables) Exercise: home exercise and gym [facility] Medical History History of lipoma Nasal congestion Sinusitis Surgical History History of bilateral breast reduction surgery History of bilateral salpingectomy History of section Family History Maternal Grandmother Diabetes Hypertension Glaucoma Maternal Grandfather Diabetes Hypertension Maternal Aunt Breast cancer Social History Housing: House Alcohol intake: never Patient Tobacco Use Status: Never used Tobacco e-Cigarette/Vaping Use: Never Used Second Hand Smoke Exposure: No service: No 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 Plan for lap sleeve gastrectomy including upper GI endoscopy. All tests has been completed and reviewed and the patient is cleared for the surgery. ?If diaphragmatic or ventral hernias are present at time of surgery, these will be repaired laparoscopically as well. Risks and complications were discussed in detail including possible conversion to an open procedure, anastomotic leak, bleeding requiring transfusion, small bowel obstruction, , DVT and pulmonary embolism, cardiac, or pulmonary complications, as care home complications such as anastomotic ulcer, insufficient weight loss and vitamin deficiencies. I emphasized the importance of close follow-up, adherence to instructions and good communication. So far she has proven to be an excellent communicator and very compliant with all our directions accomplishing a great weight loss. I believe that she is an excellent candidate and she is ready. 2. Continue same nutritional plan of two Celebrate Rebuild protein shakes (1/2 scoop in 8oz almond milk), 2 Celebrate bars and one meal (8 forks of meat and 8 forks of salad or vegetables) 3. Continue present exercise plan. Goal is to burn 2000 calories per week on aerobic exercise 4. Continue to send me weight measurements weekly Telehealth Telehealth Location of provider rendering services: practice address Location of patient: address on file Patient Identification confirmed using: Name, : Yes Telehealth method: voice only Patient verbally consented to treatment: Yes Patient verbally consented to billing insurance company: Yes Patient informed of any privacy concerns related to visit: Yes Minutes spent on Phone/Video with Pt.: 24 Coding Level of Care Code Tele Est Pt Level 3 (02627) Diagnoses Obesity (BMI 30-39.9) E66.9 Time Spent (min) 24
== END 2023-04-13 09:35 | disposition home or self-care (01) ==
LOC: HO.HBS 08:19
PROVIDERS: PCP Nurse Practitioner Family; Visit Provider Surgery
DX: E66.9 Obesity, unspecified (principal)
CPT/HCPCS: 99213

== ENCOUNTER → 2023-04-13 08:19 | Outpatient (BNVA) | payer OTHER, SELFPAY | PROVIDERS: PCP Nurse Practitioner Family; Visit Provider Surgery ==

== ENCOUNTER 2023-05-20 17:10 | Outpatient (REF) | payer OTHER, SELFPAY ==
--- NOTE | ~2023-05-20 | MR_ITS ---
EXAMINATION: MR LUMBAR SPINE WITHOUT CONTRAST CLINICAL INFORMATION: Vertebrogenic low back pain COMPARISON: Lumbar radiographs 12/27/2022 TECHNIQUE: MRI of the lumbar spine was obtained using routine sequences without the administration of intravenous contrast. FINDINGS: This examination assumes the presence of 5 lumbar type vertebral bodies. For the purposes of this examination, the L5-S1 intervertebral disc space is visualized on axial series 5 image 27. The normal lumbar lordosis is preserved. Levocurvature of the lumbar spine. Grade 1 anterolisthesis of L5-S1 with chronic bilateral pars defects at this level. No expansile or destructive osseous lesion. The conus medullaris and cauda equina nerve roots are unremarkable; the conus terminates at the level of L1. L1-L2: No significant spinal canal or neural foraminal stenosis. L2-L3: No significant spinal canal or neural foraminal stenosis. L3-L4: No significant spinal canal or neural foraminal stenosis. L4-L5: No significant spinal canal or neural foraminal stenosis. L5-S1: Advanced facet arthropathy. Grade 1 anterolisthesis with uncovering of the intervertebral disc space. The spinal canal is patent. Mild to moderate narrowing of the right neural foramen. A large sacral Tarlov cyst is noted. MR/MR lumbar spine wo con IMPRESSION: Grade 1 anterolisthesis of L5-S1 with chronic bilateral pars defects at this level. There is mild to moderate right neural foraminal stenosis at L5-S1.
== END 2023-05-20 17:11 | disposition home or self-care (01) ==
LOC: HO.MRI 17:10
PROVIDERS: PCP Nurse Practitioner Family; Visit Provider Anesthesiology
DX: M54.51 Vertebrogenic low back pain (principal); M47.816 Spondylosis without myelopathy or radiculopathy, lumbar region; E66.01 Morbid (severe) obesity due to excess calories; G89.4 Chronic pain syndrome
CPT/HCPCS: 72148

== ENCOUNTER 2023-06-09 10:01 | Outpatient (REF) | payer OTHER, SELFPAY ==
[2023-06-09 16:17] LABS: CT PCR NOT DETECTED (Not Detect.); NG PCR NOT DETECTED (Not Detect.)
[2023-06-10 13:40] LABS: BV Int Neg Control Negative (Negative); BV Int Pos Control Positive (Positive)
== END 2023-06-09 10:02 | disposition home or self-care (01) ==
LOC: HO.LAB 10:01
PROVIDERS: Visit Provider Advanced Practice Midwife
DX: Z01.419 Encounter for gynecological examination (general) (routine) without abnormal findings (principal); Z20.2 Contact with and (suspected) exposure to infections with a predominantly sexual mode of transmission; N93.9 Abnormal uterine and vaginal bleeding, unspecified
CPT/HCPCS: 0353U; 87480; 87510; 87660

== ENCOUNTER 2023-06-09 10:01 | Outpatient (AMB) | payer OTHER, SELFPAY ==
--- NOTE | 2023-06-09 10:02 | A.OFFVIS_ITS ---
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 Doing well with no concerns. She tries to eat healthy and stays active with exercise. Lost 20 lb, in the bariatric program currently on hold until the summer time for surgery if she decides to go through with it. Regular monthly menses, HMB 5-7d, lingering blood for up to 11d. Currently is not sexually active. She denies vaginal itching and irritation. STI screening offered; she accepts. Denies family history of ovarian or colon cancer. FH- maternal aunt. Last pap smear 2020, negative. [facility] Medical History Pilar cyst of scalp Nasal congestion Sinusitis History of lipoma Surgical History History of bilateral breast reduction surgery History of bilateral salpingectomy History of section Family History Maternal Grandmother Diabetes Hypertension Glaucoma Maternal Grandfather Diabetes Hypertension Maternal Aunt Breast cancer Family/Other Pancreatic cancer Social History Housing: House Alcohol intake: never Patient Tobacco Use Status: Never used Tobacco e-Cigarette/Vaping Use: Never Used Second Hand Smoke Exposure: No service: No 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: 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 Hearing needs: No Vision needs: Yes (glasses and contacts) Female Reproductive History Menstrual Age of Menarche: 13 Duration of menses: 6-7 days Date of last menstrual period: 05/26/23 control method: permanent sterilization Permanent Sterilization: BTL Total pregnancies: 2 Full term: 2 Number of Living Children: 2 Date of last pap smear: 10/24/20 (neg pap and hpv) Review of Systems Const All systems reviewed & are unremarkable except as noted in HPI and below Reports as per HPI Eyes Reports no additional complaints ENT Reports no additional complaints Card Reports no additional complaints Resp Reports no additional complaints GI Reports as per HPI and Reports no additional complaints Reports as per HPI Musc Reports no additional complaints Skin/Breast Reports as per HPI Neuro Reports no additional complaints Psych Reports no additional complaints Endo Reports no additional complaints Apollo/Lymph Reports no additional complaints Aller/Immun Reports no additional complaints Physical Exam Vital Signs: Last Vital Signs BP 110/76 06/09/23 10:03 BMI result Body Mass Index 32.1 Const General: cooperative, healthy appearing, no acute distress, well developed and alert Orientation/consciousness: patient oriented x3 HEENT Head: Yes normal to inspection Eyes General: appearance normal, both eyes and all related structures Neck Neck: Yes normal visual inspection Thyroid: Thyroid normal Chest Chest palpation & inspection: normal inspection of the chest and other (no puckering, dimpling, peau de orange, retraction, discharge, masses) Breast/axilla inspection: normal inspection of the breasts Breast/axilla palpation: normal palpation of the breasts Resp Effort & Inspection: normal respiratory effort GI Inspection: Yes normal to inspection Palpation (GI): Soft to palpation Rectal Exam - Female: deferred General: Yes bladder normal to palpation External Female Exam: normal external appearance and normal appearance of the urethra Speculum Exam - Vagina: normal appearance of the vagina, normal palpation and normal vaginal discharge Speculum Exam - Cervix: normal appearance of the cervix, normal palpation and Other cervical findings present (Bled slightly with Pap) Bimanual exam- vagina & uterus: normal bimanual exam, normal palpation, uterine size normal, bladder normal to palpation, normal palpation and non-tender Bimanual Exam- Adnexa, other: no masses Skin General skin exam: no rashes or lesions noted Rashes: no rashes Neuro General: patient oriented x3 Cognition (Neuro): normal cognition Extrem General: Yes normal to inspection Psych Attitude: cooperative Thought process: Normal thought process present Assessment & Plan Assessment & Plan (1) Encounter for well woman exam with routine gynecological exam: Code(s): Z01.419 - Encounter for gynecological examination (general) (routine) without abnormal findings (2) Abnormal uterine bleeding (AUB): Code(s): N93.9 - Abnormal uterine and vaginal bleeding, unspecified Plan Discussed: Current recommendations for pap smears per ASCCP guidelines. Breast awareness and periodic breast exams. Maintain a healthy lifestyle including a well balanced diet and routine exercise. Workup for AUB: Ultrasound, labs, discussed pre EMB procedure to take an [id number] medication in have something to eat drink an hour before the appointment time. Currently not interested in cycle control measures, we will revisit after her workup is completed. Patient verbalizes understanding and agrees to the plan of care. She was given opportunity to ask questions and all questions were answered to the best of my ability. RTO in one year for annual cabinet professional examination. This note is constructed using voice recognition software. While every effort has been made to ensure accuracy, simulation technician errors may have been included. Orders: Orders Bacterial Vaginosis Panel Today N93.9 - Abnormal uterine and vaginal bleeding, unspecified Thyroid Stimulating Hormone Today N92.1 - Excessive and frequent menstruation with irregular cycle, N93.9 - Abnormal uterine and vaginal bleeding, unspecified CT NG by PCR Today N93.9 - Abnormal uterine and vaginal bleeding, unspecified Pap Smear Today N93.9 - Abnormal uterine and vaginal bleeding, unspecified, Z01.419 - Encounter for gynecological examination (general) (routine) without abnormal findings US pelvic and transvaginal Today N93.9 - Abnormal uterine and vaginal bleeding, unspecified Complete Blood Count no Diff Today N93.9 - Abnormal uterine and vaginal bleeding, unspecified Coding Level of Care Code Est Pt Prev Care 18-39y(42222) Diagnoses Encounter for well woman exam with routine gynecological exam Z01.419 Abnormal uterine bleeding (AUB) N93.9
[2023-06-09 10:03] VITALS: BP 110/76; BMI 32.1
== END 2023-06-09 11:24 | disposition home or self-care (01) ==
LOC: HO.HWS 10:01
PROVIDERS: Visit Provider Advanced Practice Midwife
DX: Z01.419 Encounter for gynecological examination (general) (routine) without abnormal findings (principal); N93.9 Abnormal uterine and vaginal bleeding, unspecified
CPT/HCPCS: 99395

== ENCOUNTER 2023-06-09 10:32 | Outpatient (REF) | payer OTHER, SELFPAY ==
[2023-06-17 03:29] LABS: HPV 16 RNA NOT DETECTED (NOT DETECTED); HPV mRNA E6/E7 rflx Detected (Not Detected)
== END 2023-06-09 10:33 | disposition home or self-care (01) ==
LOC: HO.LNP 10:32
PROVIDERS: Visit Provider Advanced Practice Midwife
DX: Z01.419 Encounter for gynecological examination (general) (routine) without abnormal findings (principal); Z11.51 Encounter for screening for human papillomavirus (HPV); N93.9 Abnormal uterine and vaginal bleeding, unspecified
CPT/HCPCS: 87624; 87625; 88142

== ENCOUNTER 2023-06-26 10:58 | Outpatient (REF) | payer OTHER, SELFPAY ==
--- NOTE | ~2023-06-26 | US_ITS ---
EXAMINATION: US PELVIS CLINICAL INFORMATION: Abnormal uterine and vaginal bleeding unspecified, last menstrual period 06/23/2023. COMPARISON: 06/25/2021 TECHNIQUE: Ultrasound of the pelvis is performed using both transabdominal and transvaginal transducers along with Doppler. Transvaginal imaging is performed due to inadequate visualization transabdominally. FINDINGS: The uterus measures 8.4 x 5.0 x 5.5 cm. No discrete fibroids are appreciated. Prominent bilateral adnexal vessels may represent pelvic congestion. Endometrial thickness is 5 mm. Left ovary measures 3.2 x 2.1 x 1.9 cm, volume 6.7 mL and is unremarkable. Right ovary measures 2.7 x 1.9 x 2.3 cm, volume 8.5 mL. A right ovarian 1.3 cm cyst is characteristic of a physiologic cyst/follicle. There is no indication for follow-up imaging. Small scattered uterine calcifications, largest measured 3 mm. US/US pelvic and transvaginal IMPRESSION: Prominent bilateral adnexal vessels may represent pelvic congestion. Small uterine calcifications within a heterogeneous myometrium. Endometrial thickness is 5 mm.
== END 2023-06-26 10:59 | disposition home or self-care (01) ==
LOC: HO.US 10:58
PROVIDERS: Visit Provider Advanced Practice Midwife
DX: N93.9 Abnormal uterine and vaginal bleeding, unspecified (principal)
CPT/HCPCS: 76830; 76856

== ENCOUNTER 2023-06-26 11:28 | Outpatient (REF) | payer OTHER, SELFPAY ==
[2023-06-26 12:07] LABS: Hematocrit 40.3 % (37.0-47.0); Hemoglobin 12.6 g/dl (12.0-16.0); Mean Corpuscular HGB Conc 31.3 g/dl (31.0-35.0); Mean Corpuscular Hemoglobin 25.4 pg (27.0-33.0); Mean Corpuscular Volume 81.3 fL (80.0-98.0); Platelet Count 259 X10*3/uL (160-400); Red Blood Count 4.96 X10*6/uL (4.20-5.50); Red Cell Distribution Width 13.4 % (11.0-16.0); White Blood Count 7.6 X10*3/uL (4.8-10.8)
[2023-06-26 12:30] LABS: Thyroid Stimulating Hormone 1.03 uIU/mL (0.32-4.0)
== END 2023-06-26 11:29 | disposition home or self-care (01) ==
LOC: HO.LAB 11:28
PROVIDERS: Visit Provider Advanced Practice Midwife
DX: N92.1 Excessive and frequent menstruation with irregular cycle (principal); N93.9 Abnormal uterine and vaginal bleeding, unspecified
CPT/HCPCS: 36415; 84443; 85027

== ENCOUNTER 2023-07-17 15:01 | Outpatient (AMB) | payer OTHER, SELFPAY ==
--- NOTE | 2023-07-17 15:03 | MHC.OFFVIS ---
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 Cycles are heavy for 5/11 days. Recent hemoglobin 12.6, & TSH 1.03. She had a Mirena IUD in the past and took it out due to emotional changes and weight gain. She prefer not to have any hormones for treatment of her menses and would like to look at all her other options. 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: 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 Hearing needs: No Vision needs: Yes (glasses and contacts) Female Reproductive History Menstrual Age of Menarche: 13 Date of last menstrual period: 06/23/23 control method: permanent sterilization Date of last pap smear: 06/10/23 (+HPV) History of abnormal pap smear: Yes Review of Systems Const All systems reviewed & are unremarkable except as noted in HPI and below Physical Exam Const General: cooperative, healthy appearing and no acute distress Orientation/consciousness: patient oriented x3 GI Inspection: Yes normal to inspection Palpation (GI): Soft to palpation and Other GI palpation findings present (Nontender) Rectal Exam - Female: visual inspection normal General: Yes bladder normal to palpation External Female Exam: normal appearance of the urethra Speculum Exam - Vagina: normal appearance of the vagina, normal palpation and normal vaginal discharge Speculum Exam - Cervix: normal appearance of the cervix and normal palpation Bimanual exam- vagina & uterus: normal bimanual exam, normal palpation, uterine size normal, bladder normal to palpation, normal palpation, uterine shape normal and non-tender Bimanual Exam- Adnexa, other: normal adnexae Neuro General: patient oriented x3 Office Procedures Endometrial Biopsy Details: The patient is here today for an endometrial biopsy due to AUB to rule out any pathology including atypical, hyperplasia or cancer cells of the uterus. She was counseled regarding anticipatory guidance for the procedure including the risks for pain, infection, bleeding, perforation, potential injury to the tissues may include the cervix, uterus, tubes, bladder and bowels. These injuries may include further treatment and evaluation including surgery, blood transfusions, antibiotics, hospitalizations and anesthesia. Permanent injury and scarring can occur. She was consented for the procedure, and the consent forms were signed. She is agreeable to have the procedure today. All questions were answered. Endometrial Biopsy Procedure: The patient was placed in the dorsal lithotomy position and a sterile speculum inserted. Using aseptic technique for the procedure. The cervix was cleansed with Betadine x 3 swabs. A single toothed tenaculum was placed on the cervix for stabilization and the uterus was sounded to unable to sound past the internal os a graduated dilator was inserted gently for 1-2 cm x1 pass and she sounded to 9 cm with a 4mm pipelle for 2 passes, no tissue was found after to adequate passes a very small amount of blood was noted in the pipelle tube. The procedure was discontinued. Minimal bleeding was observed. The tissue sample was placed in formalin in a patient labeled container by staff assisting and sent to the pathology department for processing and interpretation. The patient tolerate the procedure well and was in good condition when leaving the department. Appointment for consult for hysteroscopy to be made with Dr. Torres. Endometrial Biopsy Post Procedure Care: Nothing in the vagina including: tampons, douching or intimacy until all the bleeding has subsided. There may be some post procedure bleeding for several days, this bleeding is usually light and may turn to a light brown or pink color. Mild cramps may occurs. Nothing in the vaginal including: tampons, douching, or intimacy until all the bleeding has subsided. You may take an over the counter mild analgesic such as Tylenol or Advil (if no allergies) per the manufactures recommendation on dosing, frequency, and follow the directions completely. Call the office if any: fever (over 100.4), flu like symptoms, abdominal pain (worse than cramping), foul smelling, infected appearing vaginal discharge, or heavy bleeding. If indicated: Use condoms to prevent and STI's, and only after the bleeding has stopped completely. Return to the office in 2 weeks for results and plan of care. This note is constructed using voice recognition software. While every effort has been made to ensure accuracy, dump operator errors may have been included. [id number] Biopsy Results AMB Test Urine AMB Test Urine Negative Last Edit by SARABJIT Escalera on 07/17/23 15:20 Results Reviewed Results Reviewed: [place] [address] Ultrasound Report Signed Patient: Queta Alan MR#: [id number] : 1985 Acct:[id number] Age/Sex: 37 / F ADM Date: 06/26/23 Loc: HO.US Attending Dr: Selene Joshi CNM Ordering Physician: Selene Joshi CNM Date of Service: 06/26/23 Procedure(s): US pelvic and transvaginal Accession Number(s): [id number] cc: Selene Joshi CNM~ EXAMINATION: US PELVIS CLINICAL INFORMATION: Abnormal uterine and vaginal bleeding unspecified, last menstrual period 06/23/2023. COMPARISON: 06/25/2021 TECHNIQUE: Ultrasound of the pelvis is performed using both transabdominal and transvaginal transducers along with Doppler. Transvaginal imaging is performed due to inadequate visualization transabdominally. FINDINGS: The uterus measures 8.4 x 5.0 x 5.5 cm. No discrete fibroids are appreciated. Prominent bilateral adnexal vessels may represent pelvic congestion. Endometrial thickness is 5 mm. Left ovary measures 3.2 x 2.1 x 1.9 cm, volume 6.7 mL and is unremarkable. Right ovary measures 2.7 x 1.9 x 2.3 cm, volume 8.5 mL. A right ovarian 1.3 cm cyst is characteristic of a physiologic cyst/follicle. There is no indication for follow-up imaging. Small scattered uterine calcifications, largest measured 3 mm. US/US pelvic and transvaginal IMPRESSION: Prominent bilateral adnexal vessels may represent pelvic congestion. Small uterine calcifications within a heterogeneous myometrium. Endometrial thickness is 5 mm. Dictated By: Bonnie Daley MD Signed By: <Electronically signed by Bonnie Daley MD in OV> 06/29/23 1402 DD/ 1116 TD/TT: Financial Associate: Assessment & Plan Assessment & Plan (1) Abnormal uterine bleeding (AUB): Code(s): N93.9 - Abnormal uterine and vaginal bleeding, unspecified (2) Encounter to discuss test results: Code(s): Z71.2 - Person consulting for explanation of examination or test findings Plan Discussed: Ultrasound findings and treatment options including Mirena, oral contraceptives, uterine ablation and last option of hysterectomy. All of her questions and concerns were addressed to the best of my ability and shared decision making. She is agreeable to the plan of care. This note is constructed using voice recognition software. While every effort has been made to ensure accuracy, dump operator errors may have been included. Orders: Orders AMB HCG Urine Test Today Z32.02 - Encounter for test, result negative Coding Level of Care Code Procedure Only Diagnoses Abnormal uterine bleeding (AUB) N93.9 Encounter to discuss test results Z71.2 CPT Codes Endometrial Biopsy - CPT: 93492-[id number] Biopsy ([id number]) Comment Additional modifier for ultrasound results
[2023-07-17 15:08] VITALS: BP 120/70; BMI 32.6
== END 2023-07-21 08:41 | disposition home or self-care (01) ==
PROVIDERS: Visit Provider Advanced Practice Midwife
DX: N93.9 Abnormal uterine and vaginal bleeding, unspecified (principal); Z71.2 Person consulting for explanation of examination or test findings; Z32.02 Encounter for pregnancy test, result negative
CPT/HCPCS: 58100

== ENCOUNTER → 2023-07-17 15:01 | Outpatient (BNVA) | payer OTHER, SELFPAY | PROVIDERS: Visit Provider Advanced Practice Midwife | DX: N93.9 Abnormal uterine and vaginal bleeding, unspecified (principal) | CPT/HCPCS: 58100; 81025 ==

== ENCOUNTER 2023-08-24 15:34 | Outpatient (AMB) | payer OTHER, SELFPAY ==
[2023-08-24 15:37] VITALS: BMI 32.6
--- NOTE | 2023-08-24 15:37 | A.OFFVIS_ITS ---
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 Patient had an attempt at a endometrial biopsy but no endometrial tissues were retrieved [facility] Medical History Pilar cyst of scalp Nasal congestion Sinusitis History of lipoma Surgical History History of bilateral breast reduction surgery History of bilateral salpingectomy History of section Family History Maternal Grandmother Diabetes Hypertension Glaucoma Maternal Grandfather Diabetes Hypertension Maternal Aunt Breast cancer Family/Other Pancreatic cancer Social History Housing: House Alcohol intake: never Patient Tobacco Use Status: Never used Tobacco e-Cigarette/Vaping Use: Never Used Second Hand Smoke Exposure: No service: No 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: 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 Hearing needs: No Vision needs: Yes (glasses and contacts) Female Reproductive History Menstrual Age of Menarche: 13 Date of last menstrual period: 08/20/23 Total pregnancies: 2 Full term: 2 Review of Systems Card Reports as per HPI and Reports no additional complaints Resp Reports as per HPI and Reports no additional complaints GI Reports as per HPI and Reports no additional complaints Reports as per HPI Physical Exam Vital Signs: BMI result Body Mass Index 32.6 Const General: cooperative, healthy appearing and comfortable Resp Effort & Inspection: normal respiratory effort Auscultation: clear to auscultation bilaterally Percussion: percussion normal Cardio Palpation: normal PMI Rate: regular rate Rhythm: regular rhythm Heart sounds: no murmurs and no rubs Peripheral pulses: Peripheral pulses 2+ throughout GI Inspection: Yes normal to inspection Palpation (GI): Soft to palpation, nontender, no guarding, not rigid and No hepatosplenomegaly present Percussion: Yes normal to percussion Auscultation: normal bowel sounds Rectal Exam - Female: deferred Assessment & Plan Assessment & Plan (1) Abnormal uterine bleeding: Code(s): N93.9 - Abnormal uterine and vaginal bleeding, unspecified Category: Medical Plan: Recommended to the patient that the next step is an endometrial sampling via hysteroscopy D&C possible polypectomy versus endometrial biopsy to r/o endometrial pathology including hyperplasia or cancer. All the pros and cons risks and benefits of each approach were discussed with the patient, endometrial biopsy being less invasive, office procedure with less sensitivity and inability diagnose a polyp and removal versus hysteroscopy done under anesthesia more invasive more sensitive to endometrial cancer and possibility of diagnosing and endometrial polyp with the possibility of polypectomy. All questions were answered pt verbalized understanding and decided to proceed with hysteroscopy/D&C possible polypectomy/myomectomy. Discussed with the patient the procedure , all benefits and risks including but not limited to inability to complete the procedure , insufficient endometrial tissue for a complete evaluation of the endometrial cavity , bleeding, infection, possible need for blood transfusion with all its risk ( HIV,syphilis, Hepatitis, anaphylaxis shock, others..), injury to bladder, rectum, possible need for laparoscopy/laparotomy or hysterectomy. The patient verbalized understanding and signed the consent. Instructions given the patient to schedule a 2 week postoperative appointment
== END 2023-08-24 16:13 | disposition home or self-care (01) ==
LOC: HO.HWS 15:34
PROVIDERS: Visit Provider Obstetrics & Gynecology
DX: N93.9 Abnormal uterine and vaginal bleeding, unspecified (principal)
CPT/HCPCS: 99213

== ENCOUNTER → 2023-08-24 15:34 | Outpatient (BNVA) | payer OTHER, SELFPAY | PROVIDERS: Visit Provider Obstetrics & Gynecology ==

== ENCOUNTER 2023-09-11 08:51 | Day surgery (SDC) | payer OTHER, SELFPAY ==
[2023-09-09 10:37] VITALS: BMI 32.6
--- NOTE | 2023-09-09 12:07 | P.CONAN_ITS ---
Documented by User: Hanny Blancas NP 09/09/23 12:07 HPI - Anesthesia Eval Consult details Narrative: 38yo F for D&C Hysteroscopy,possible myomectomy,possible polypectomy PMFSH Active Problems Active Problems: All Active Problems Abnormal uterine bleeding (Acute) BMI 32.0-32.9,adult (Acute) Vertebrogenic low back pain (Acute) Adjustment disorder, unspecified (Acute) BMI 33.0-33.9,adult (Acute) Vitamin A deficiency (Acute) Chronic pain syndrome (Acute) Morbid obesity (Acute) Spondylosis of lumbar region without myelopathy or radiculopathy (Acute) BMI 35.0-35.9,adult (Acute) Low vitamin D level (Acute) Lump of skin (Acute) Low back pain (Acute) Obesity (BMI 30-39.9) (Acute) Menorrhagia (Acute) Physical exam (Acute) Chronic low back pain with right-sided sciatica (Acute) Elevated LFTs (Acute) Elevated C-reactive protein (CRP) (Acute) Pain of right sacroiliac joint (Acute) Sciatica (Acute) Past Medical History Medical History Lumbar spondylosis Pilar cyst of scalp Nasal congestion Sinusitis History of lipoma Family History Family History Maternal Grandmother Diabetes Hypertension Glaucoma Maternal Grandfather Diabetes Hypertension Maternal Aunt Breast cancer Family/Other Pancreatic cancer Surgical History Surgical History History of bilateral breast reduction surgery History of bilateral salpingectomy History of section Social History Social History Housing: House Alcohol intake: never Patient Tobacco Use Status: Never used Tobacco e-Cigarette/Vaping Use: Never Used Second Hand Smoke Exposure: No Are you DNR?: No Advance Directives: No Advance Directives Information Provided: Yes Nutrition Risks: No Nutritional Risk FDLMP: due tomorrow service: No 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: 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 Hearing needs: No Vision needs: Yes (glasses and contacts) Meds Allergies Allergy/AdvReac Type Severity Reaction Status Date / Time No Known Allergies Allergy Verified 09/11/23 09:19 [No Known Allergies*] Home Medications ?Medication ?Instructions ?Recorded ?Confirmed ?Last Taken ?Type [id number]-cse-tivw 18 mg-FA 400 1 tab PO DAILY 05/30/21 09/09/23 Unknown History mcg-calcium 500 mg-vit K 50 mcg tablet (Women's Multivitamin) Exam Height,Weight and Vital Signs: Height 5 ft 3 in Weight 83.461 kg Assessment and Plan Assessment Anesthesia Assessment: Chart Reviewed Documented by User: Caridad Marshall MD 09/11/23 10:26 PMFSH Active Problems Active Problems: All Active Problems Abnormal uterine bleeding (Acute) BMI 32.0-32.9,adult (Acute) BMI 32.6 Vertebrogenic low back pain (Acute) Adjustment disorder, unspecified (Acute) Vitamin A deficiency (Acute) Chronic pain syndrome (Acute) Morbid obesity (Acute) Spondylosis of lumbar region without myelopathy or radiculopathy (Acute) Low vitamin D level (Acute) Lump of skin (Acute) Low back pain Menorrhagia (Acute) Physical exam (Acute) Chronic low back pain with right-sided sciatica (Acute) Elevated LFTs (Acute) Elevated C-reactive protein (CRP) (Acute) Pain of right sacroiliac joint (Acute) Sciatica (Acute) Past Medical History Medical History Lumbar spondylosis Pilar cyst of scalp Nasal congestion Sinusitis History of lipoma Family History Family History Maternal Grandmother Diabetes Hypertension Glaucoma Maternal Grandfather Diabetes Hypertension Maternal Aunt Breast cancer Family/Other Pancreatic cancer Family history of problems with anesthesia: No Surgical History Surgical History History of bilateral breast reduction surgery History of bilateral salpingectomy History of section History of Problems with Anesthesia: No Social History Social History Housing: House Alcohol intake: never Patient Tobacco Use Status: Never used Tobacco e-Cigarette/Vaping Use: Never Used Second Hand Smoke Exposure: No Are you DNR?: No Advance Directives: No Advance Directives Information Provided: Yes Nutrition Risks: No Nutritional Risk FDLMP: due tomorrow service: No 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: 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 Hearing needs: No Vision needs: Yes (glasses and contacts) Meds Allergies Allergy/AdvReac Type Severity Reaction Status Date / Time No Known Allergies Allergy Verified 09/11/23 09:19 [No Known Allergies*] Home Medications ?Medication ?Instructions ?Recorded ?Confirmed ?Last Taken ?Type [id number]-uio-tufj 18 mg-FA 400 1 tab PO DAILY 05/30/21 09/09/23 Unknown History mcg-calcium 500 mg-vit K 50 mcg tablet (Women's Multivitamin) Exam Height,Weight and Vital Signs: Height 5 ft 3 in Weight 83.461 kg Vital Signs Temp Pulse Resp BP Pulse Ox O2 Del Method 09/11/23 09:57 98.6 F 68 18 117/72 100 Room Air Pertinent Lab Results Pertinent Lab Results: Lab Results 09/11/23 Range/Units 09:15 Urine Test NEGATIVE (NEGATIVE) Airway Mallampati Class: II TM Dist: >3cm Neck ROM: Full Loose/Missing/Broken Teeth: No (Invisalign. Denies broken, loose, missing teeth) Heart: RRR Lungs: CTAB Assessment and Plan Assessment Anesthesia Assessment: Anesthesia Plan Discussed and Chart Reviewed Final Anesthetic Review Family History of Problems with Anesthesia: No History of Problems with Anesthesia: No NPO: Yes ASA Class: II Final Preanesthetic Review: No Changes in Pt Med Stat, Meds/Allgs Chart Revi ewed, Consent Obtained/Reviewed and Anes Risks/Benef Reviewed Patient Risk: Low Procedure Risk: Low Assessment/Block/Sedation in SS: Assess/Block/Sedation-SS Anesthetic Plan Anesthetic Plan: GA Disposition: Standard PACU
[2023-09-11] VITALS (7 sets, daily range): BP systolic 110–128; BP diastolic 70–81; PULSE 58–76; RESP 12–18; TEMP 36.8–37; O2SAT 97–100
[2023-09-11 09:32] LABS: UPreg QC Valid YES; Urine Pregnancy NEGATIVE (NEGATIVE)
[2023-09-11] MEDS: Lactated Ringers 1,000 ML 100 ML IVCONT (09:49)
--- NOTE | 2023-09-11 10:12 | MHC.SHP ---
Pre-Procedural Eval Section A - 24 Hr Update-Section A only Date of Service: 09/11/23 The patient is an INPATIENT: No Changes since office visit: No Cold of Flu in the past 2 weeks, No New Medical Problems, No Changes in Medication and No Patient answered all questions The patient has been examined within 24 hours of the surgical procedure. The History & Physical has been completed within 30 days and I have reviewed it.: Yes Section B - Complete if H&P > 30 days Chief Complaint: Abnormal uterine and vaginal bleeding, Allergies: Allergies Allergy/AdvReac Type Severity Reaction Status Date / Time No Known Allergies Allergy Verified 09/11/23 09:19 [No Known Allergies*] Plan Diagnosis/Plan: Unchanged I have reviewed the history and physical and performed a pertinent physical examination on my patient. No changes have occurred unless specified. Time Spent With Patient Time: Total time managing care of this patient today ____ minutes.
--- NOTE | 2023-09-11 11:11 | PM.OP ---
Brief Operative Note Date of Service: 09/11/23 Pre-op diagnosis: Abnormal uterine bleeding Post-op diagnosis: same Procedure: Hysteroscopy D&C, Polypectomy Surgeon: Israel Torres MD Anesthesia: GLMA Was an [facility] used for this Procedure?: No Estimated blood loss (mL): 0 Pathology: other (Endometrial Scrapping. Polyp) Condition: stable Disposition: PACU
--- NOTE | 2023-09-11 11:12 | W.PM.OPN ---
Operative Note Operative Note Date of Service: 09/11/23 Narrative: Preop Diagnosis: Abnormal uterine bleeding Operation: Diagnostic Hysteroscopy, Dilataion & Curettage and polypectomy Post Op Diagnosis: Endometrial Polyp QBL: Minimal Anesthesia: GLMA Surgeon: Israel Torres MD Business Objects Developer: None Complication: None Pathology: Endometrial Scrapings, Endometrial polyp Procedure: The patient was put in the dorsal lithotomy position, scrubbed, and draped in the usual manner. A sterile speculum was inserted in the patient's vagina. The anterior lip of the cervix was grasped with a single tooth tenaculum. The cervix was dilated up to 5 mm, then the scope was inserted in the patient's uterus. Inspection revealed endometrial polyp. The Myosure Reach device was used; it was introduced through the operative channel and polypectomy done with no complications. The scope was then taken out from the uterine cavity, sharp curettings was carried on with minimal to moderate amount of tissues retrieved. At the end of the procedure, all instruments were taken out of the patient uterine and vaginal cavity. The single tooth tenaculum was removed and homeostasis was assured using pressure,. The patient tolerated the procedure well and was transferred to the PACU in a stable condition.
[2023-09-11] MEDS: Acetaminophen 325 MG TABLET 650 MG PO (11:17)
[2023-09-11] MEDS: oxyCODONE HCl Immed Release 5 MG TABLET PO (11:17)
== END 2023-09-11 12:09 | disposition home or self-care (01) ==
PROVIDERS: Visit Provider Obstetrics & Gynecology
PROC: 0UDB8ZZ Extraction of Endometrium, Via Natural or Artificial Opening Endoscopic (ICD-10-PCS; CPT 58558; principal; 2023-09-11 10:30)
DX: N93.9 Abnormal uterine and vaginal bleeding, unspecified (principal); N84.0 Polyp of corpus uteri; Z98.890 Other specified postprocedural states
CPT/HCPCS: 58558; 81025; 88305; J1100; J1885; J2405; J2704; J3010

== ENCOUNTER → 2023-09-11 08:51 | Outpatient (BNV) | payer OTHER, SELFPAY | PROVIDERS: Visit Provider Obstetrics & Gynecology | DX: N93.9 Abnormal uterine and vaginal bleeding, unspecified (principal); N84.0 Polyp of corpus uteri | CPT/HCPCS: 58558 ==

== ENCOUNTER 2023-10-06 14:17 | Outpatient (AMB) | payer OTHER, SELFPAY ==
[2023-10-06 14:22] VITALS: BP 114/66; BMI 32.1
--- NOTE | 2023-10-06 14:22 | A.OFFVIS_ITS ---
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 The pathology showed the following: A. Endometrial polyp, biopsy: Polypoid fragments of endometrium with secretory changes; negative for atypia, hyperplasia or malignancy. B. Endometrium, curettage: Secretory endometrium; negative for atypia, hyperplasia or malignancy The following workup was done.: H&H= 12.6/40.3 TSH, GC and chlamydia were negative. Pap smear shows no intraepithelial lesion/HPV E6/E7 positive Pelvic ultrasound showed the following: The uterus measures 8.4 x 5.0 x 5.5 cm. No discrete fibroids are appreciated. Prominent bilateral adnexal vessels may represent pelvic congestion. Endometrial thickness is 5 mm. Left ovary measures 3.2 x 2.1 x 1.9 cm, volume 6.7 mL and is unremarkable. Right ovary measures 2.7 x 1.9 x 2.3 cm, volume 8.5 mL. A right ovarian 1.3 cm cyst is characteristic of a physiologic cyst/follicle. There is no indication for follow-up imaging. Small scattered uterine calcifications, largest measured 3 mm. 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: 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 Hearing needs: No Vision needs: Yes (glasses and contacts) Female Reproductive History Menstrual Age of Menarche: 13 Date of last menstrual period: 09/12/23 Review of Systems Const All systems reviewed & are unremarkable except as noted in HPI and below Reports as per HPI and Reports no additional complaints GI Reports no additional complaints Reports no additional complaints Physical Exam Vital Signs: Last Vital Signs BP 114/66 10/06/23 14:22 BMI result Body Mass Index 32.1 Assessment & Plan Assessment & Plan (1) Abnormal uterine bleeding: Code(s): N93.9 - Abnormal uterine and vaginal bleeding, unspecified Category: Medical Plan: Discussed with the patient the results of the work up done and options of treatment including Lysteda, BCP's, Mirena IUD, endometrial ablation and hysterectomy. All pros, cons, risks and benefits if each option was discussed with the patient and the patient decided to think about it and get back to us. All questions answered the patient verbalized understanding. (2) HPV in female: Comment: NIL in Pap Code(s): B97.7 - Papillomavirus as the cause of diseases classified elsewhere Category: Medical Plan: Recommended co testing in 1 year. Instructions given the patient to schedule a 1 year appointment for co testing. All questions answered, the patient verbalized understanding Coding Level of Care Code Est Pt Level 3 (34898) Diagnoses Abnormal uterine bleeding N93.9 HPV in female B97.7
== END 2023-10-06 14:40 | disposition home or self-care (01) ==
LOC: HO.HWS 14:17
PROVIDERS: Visit Provider Obstetrics & Gynecology
DX: N93.9 Abnormal uterine and vaginal bleeding, unspecified (principal); B97.7 Papillomavirus as the cause of diseases classified elsewhere
CPT/HCPCS: 99213

== ENCOUNTER → 2023-10-06 14:17 | Outpatient (BNVA) | payer OTHER, SELFPAY | PROVIDERS: Visit Provider Obstetrics & Gynecology ==

== ENCOUNTER 2023-12-28 15:59 | Outpatient (AMB) | payer OTHER, SELFPAY ==
[2023-12-28 16:01] VITALS: BP 116/72; PULSE 78; O2SAT 98; BMI 33.5
--- NOTE | 2023-12-28 16:01 | MHC.PC.OV ---
Vital Signs 12/28/23 16:01 Height 5 ft 3 in Weight 189 lb BMI 33.5 BP 116/72 Blood Pressure Location Lt brachial Position Sitting Pulse 78 Pulse Source Pulse Oximeter Pulse Oximetry (%) 98 Oxygen Delivery Method Room Air Intake Visit Reasons: annual exam Surgical Supplies Sterilizer Required: No Accompanied by: Self / Same As Patient Allergies No Known Allergies [No Known Allergies*] Allergy (Verified 12/28/23 16:19) Medication List - Last Reconciled 12/28/23 by Ashley Ewing PA-C cholecalciferol (vitamin D3) 25 mcg PO DAILY zz-wg-pcjf-FA-Ca carb-vit K 18 mg-400 mcg- 500 mg-50 mcg (Women's Multivitamin) 1 tab PO DAILY vitamin A palmitate 10,000 units PO DAILY Tobacco use date assessed: 12/28/23 Dental Screening Dental Screen Date: 12/28/23 Did you have a dental visit in the last 12 months?: Yes Did you have a dental problem in the last 6 months where you did not have access to dental care?: No Was dental information given to patient?: Patient has dentist HPI annual exam HPI Details 38-year-old female with past medical history morbid obesity and chronic pain syndrome last seen by nurse practitioner December 2022 coming in for annual visit.? Review of the notes, patient was seen by [facility] gynecology October 2023 for annual visit and follow up on endometrial biopsy.? Advised to follow up in 1 year for co-testing. States she was being seen previously by weight loss program and is doing well with the diet that was provided. She was able to lose about 23 lb but did gain about 10 lb back when she switched back to solid diet. She mentioned she is still having low back pain which is chronic and has been seen by pain management and given injections which did not find helpful. She is considering a chiropractor. [facility] Medical History Lumbar spondylosis Pilar cyst of scalp Nasal congestion Sinusitis History of lipoma Surgical History H/O removal of cyst History of bilateral breast reduction surgery History of bilateral salpingectomy History of section Family History Maternal Grandmother Diabetes Hypertension Glaucoma Maternal Grandfather Diabetes Hypertension Maternal Aunt Breast cancer Family/Other Pancreatic cancer Social History Housing: House Alcohol intake: never Patient Tobacco Use Status: Never used Tobacco Tobacco use type: Cigarette e-Cigarette/Vaping Use: Never Used Second Hand Smoke Exposure: No service: No 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 1. Little interest or pleasure in doing things: not at all 2. Feeling down, depressed, or hopeless: not at all 3. Trouble falling or staying asleep, or sleeping too much: not at all 4. Feeling tired or having little energy: not at all 5. Poor appetite or overeating: not at all 6. Feeling bad about yourself - or that you are a failure or have let yourself or your family down: not at all 7. Trouble concentrating on things, such as reading the newspaper or watching television: not at all 8. Moving or speaking so slowly that other people could have noticed. Or the opposite - being so fidgety or restless that you have been moving around a lot more than usual: not at all 9. Thoughts that you would be better off or of hurting yourself in some way: not at all Total score: 0 Depression Screening Interpretation: Negative Depression Screening Done: Yes 86510 - PHQ-9 Billing: Yes Source: Developed by Drs. Edouard Morales, Adrienne Tate, Jf Ann and colleagues, with an educational julián from [employer]. Thrive Questionnaire Date Thrive assessed: 12/28/23 I am a: Patient What is your living situation today?: I have a steady place to live Within the past 12 months, did the food you bought not last and you didn't have the money to get more?: Never true Within the past 12 months, did you worry whether your food would run out before you got money to buy more?: Never true THRIVE Score: 0 AUDIT C Alcohol Use Questionnaire (AUDIT-C) 1. How often do you have a drink containing alcohol?: Never 2. How many drinks containing alcohol do you have on a typical day when you are drinking?: 1 or 2 3. How often do you have six or more drinks on one occasion?: Never Total Score: 0 Score Reviewed/Action Taken: No GLADYS-7 AMB Questionnaire GLADYS-7 Date GLADYS - 7 assessed: 12/28/23 Feeling nervous, anxious, or on edge: 0 = Not at all Not being able to stop or control worryin = Not at all Worrying too much about different things: 0 = Not at all Trouble relaxin = Not at all Being so restless that it is hard to sit still: 0 = Not at all Becoming easily annoyed or irritable: 0 = Not at all Feeling afraid as if something awful might happen: 0 = Not at all Total GLADYS-7 score (0-4 normal; 5-9 mild; 10-14 moderate; 15-21 severe): 0 Source: Developed by Drs. Edouard Morales, Adrienne Tate, Jf Ann and colleagues, with an educational julián from [employer]. GLADYS-7 Assessment Billing GLADYS-7 Assessment Tool: GLADYS-7 Assessment 67629 Review of Systems Const Denies body aches, Denies fatigue, Denies fever(s), Denies frequent falls, Denies headache(s) and Denies weakness Eyes Reports no additional complaints and Denies change in vision ENT Denies dysphagia, Denies dizziness, Denies facial pain, Denies headache(s), Denies nasal congestion and Denies odynophagia Card Denies chest pain, Denies syncope, Denies irregular heart rhythm, Denies leg edema, Denies lightheadedness and Denies dyspnea Resp Denies cough and Denies dyspnea GI Denies constipation, Denies dysphagia, Denies dyspepsia, Denies diarrhea, Denies nausea, Denies odynophagia and Denies vomiting Denies urinary frequency, Denies dysuria, Denies urinary hesitancy and Denies urinary urgency Musc Reports back pain and Denies myalgias Skin/Breast Reports system reviewed and no additional complaints, except as documented Neuro Denies dizziness, Denies syncope, Denies frequent falls, Denies headache(s) and Denies weakness Psych Reports no additional complaints Endo Denies fatigue Physical exam (Primary Care) Vital Signs: Last Vital Signs Pulse 78 12/28/23 16:01 BP 116/72 12/28/23 16:01 Pulse Ox 98 12/28/23 16:01 Oxygen Delivery Method Room Air 12/28/23 16:01 BMI result Body Mass Index 33.5 Tobacco/Smoking Status: Tobacco use Status Tobacco use date assessed 12/28/23 12/28/23 16:07 Patient Tobacco Use Status Never used Tobacco 12/28/23 16:07 Tobacco use type Cigarette 12/28/23 16:07 e-Cigarette/Vaping Use Never Used 12/28/23 16:07 PHQ-9: PHQ-9 Score PHQ-9: Total score 0 12/28/23 16:07 Depression Screening Interpretation: Negative Thrive Assessment: Date of Thrive Assessment Date Thrive assessed 12/28/23 12/28/23 16:07 Const General: cooperative, healthy appearing, comfortable and no acute distress Orientation/consciousness: patient oriented x3 HENMT Head: Yes normocephalic Ears: hearing grossly normal bilaterally, external ears normal, TM's normal bilaterally and EAC's normal General nose exam: Normal external nose present Face and sinus: Yes normal facial exam and Yes sinuses nontender Mouth: Normal oral and palatal mucosa present and tongue normal Throat: Yes posterior oropharynx normal Eyes General: appearance normal, both eyes and all related structures Conjunctivae: conjunctivae normal Pupils: Equal, round and reactive pupils present EOM: EOMs intact bilaterally and No Nystagmus present Neck Neck: Yes normal visual inspection, Yes full ROM and Yes no lymphadenopathy Chest Chest palpation & inspection: normal inspection of the chest Resp Effort & Inspection: normal respiratory effort Auscultation: clear to auscultation bilaterally, no crackles, no rales, no rhonchi, no wheezes and breath sounds present Cardio Rate: regular rate Rhythm: regular rhythm Peripheral pulses: radial pulses present and dorsalis pedis present GI Inspection: Yes normal to inspection and No Abdominal wall edema Palpation (GI): Soft to palpation, not firm and nontender Auscultation: normal bowel sounds Rectal Exam - Female: deferred General: Yes no CVA tenderness Back/Spine/Pelvis Other: No pain to palpation of the lower back. Back: no CVA tenderness Skin General skin exam: no rashes or lesions noted Neuro General: patient oriented x3 Cranial nerves: Yes Equal, round and reactive pupils present, Yes Midline tongue present, Yes Ability to bilaterally elevate shoulders present and No Nystagmus present Gait exam (Neuro): Normal gait present Extrem General: Yes normal to inspection, Yes full ROM, No no pedal edema and No edema Psych Speech and movement: Normal speech and movement present Affect: normal affect Insight: Good insight present (Psych) Judgement: Good judgement present (Psych) Assessment and Plan Assessment & Plan (1) HPV in female: Comment: NIL in Pap Code(s): B97.7 - Papillomavirus as the cause of diseases classified elsewhere Plan: Continue to follow with routine Pap smears with Gynecology. (2) Abnormal uterine bleeding: Code(s): N93.9 - Abnormal uterine and vaginal bleeding, unspecified Plan: Continue to follow with gynecology. (3) BMI 32.0-32.9,adult: Code(s): Z68.32 - Body mass index [BMI] 32.0-32.9, adult Plan: Encouraged healthy diet and increased exercise. Advised patient to look into low-impact exercises and possibly aerobic exercises that would not affect her back pain. (4) Chronic pain syndrome: Code(s): G89.4 - Chronic pain syndrome Plan: Was being seen by pain management and did received back injections which did find helpful. Patient is considering chiropractor. Continue with exercise as tolerated and weight loss. (5) Annual physical exam: Code(s): Z00.00 - Encounter for general adult medical examination without abnormal findings Plan: Patient is up-to-date on all recommended routine screenings and vaccinations for her age. Updated blood work ordered at today's visit. Patient will follow up for yearly exams or sooner if new problems arise. Plan This note was constructed using voice recognition software. While every effort has been made to ensure accuracy and plastic surgery assistant, still areas may have been included sometimes these areas may affect the content or meeting of the given symptoms. Total time spent caring for the patient today was 30 minutes. This includes time spent before the visit reviewing the chart, time spent during the visit, and time spent after the visit and documentation. Orders: Orders Free T4 (Free Thyroxine) Today Z00.00 - Encounter for general adult medical examination without abnormal findings Vitamin B12 and Folate Today Z00.00 - Encounter for general adult medical examination without abnormal findings Lipid Panel Today Z00.00 - Encounter for general adult medical examination without abnormal findings Complete Blood Count Auto Diff Today Z00.00 - Encounter for general adult medical examination without abnormal findings Comprehensive Met. Panel Today Z00.00 - Encounter for general adult medical examination without abnormal findings TSH reflex Free T4 Today Z00.00 - Encounter for general adult medical examination without abnormal findings Vitamin D 25-OH (D2 and D3) Today Z00.00 - Encounter for general adult medical examination without abnormal findings MM tomosynthesis screening BI 8 Months Z12.31 - Encounter for screening mammogram for malignant neoplasm of breast Medications: Refilled cholecalciferol (vitamin D3) 25 mcg PO DAILY 90 tabs 0RF R79.89 - Other specified abnormal findings of blood chemistry cholecalciferol (vitamin D3) 25 mcg PO DAILY 90 tabs 1RF R79.89 - Other specified abnormal findings of blood chemistry Coding Level of Care Code Est Pt Prev Care 18-39y(29876) Diagnoses HPV in female B97.7 Abnormal uterine bleeding N93.9 BMI 32.0-32.9,adult Z68.32 Chronic pain syndrome G89.4 Annual physical exam Z00.00 Additional Codes GLADYS-7 Assessment Billing - GLADYS-7 Assessment Tool: GLADYS-7 Assessment [id number] ([id number])
== END 2023-12-28 16:39 | disposition home or self-care (01) ==
DX: Z00.00 Encounter for general adult medical examination without abnormal findings (principal); N93.9 Abnormal uterine and vaginal bleeding, unspecified; B97.7 Papillomavirus as the cause of diseases classified elsewhere; Z68.32 Body mass index [BMI] 32.0-32.9, adult; G89.4 Chronic pain syndrome
CPT/HCPCS: 99395

== ENCOUNTER 2024-01-09 08:16 | Outpatient (REF) | payer OTHER, SELFPAY ==
[2024-01-09 08:44] LABS: MANUAL DIFF FLAG NO
[2024-01-09 08:57] LABS: Basophils Percent Auto 0.5 % (0-2); Eosinophils Absolute Auto 0.2 X10*3/uL (0.0-0.4); Eosinophils Percent Auto 2.1 % (0-4); Hematocrit 38.9 % (37.0-47.0); Hemoglobin 12.2 g/dl (12.0-16.0); Imm Gran Abs Auto 0.02 X10*3/uL (0.00-0.03); Imm Gran Pct Auto 0.3 % (0.0-0.4); Lymphocytes Absolute Auto 1.6 X10*3/uL (1.2-4.9); Lymphocytes Percent Auto 21.1 % (20-40); Mean Corpuscular HGB Conc 31.4 g/dl (31.0-35.0); Mean Corpuscular Hemoglobin 25.4 pg (27.0-33.0); Mean Platelet Volume 9.4 fL (9.4-12.3); Monocytes Absolute Auto 0.6 X10*3/uL (0.1-1.2); Monocytes Percent Auto 8.2 % (2-11); Neutrophils Absolute Auto 5.3 x10*3/uL (2.0-8.3); Neutrophils Percent Auto 67.8 % (45-73); Platelet Count 264 X10*3/uL (160-400); Red Cell Distribution Width 12.7 % (11.0-16.0); White Blood Count 7.8 X10*3/uL (4.8-10.8)
[2024-01-09 09:48] LABS: Alanine Aminotransferase 32 U/L (0-31); Albumin Level 4.1 g/dL (3.5-5.0); Alkaline Phosphatase 72 U/L (39-117); Anion Gap 10 (12-20); Aspartate Amino Transferase 20 U/L (5-31); Bilirubin Total 0.4 mg/dL (0.0-1.0); Blood Urea Nitrogen 17 mg/dL (9-16); Calcium 9.2 mg/dL (8.4-10.2); Carbon Dioxide 26 mmol/L (22-29); Chloride 108 mmol/L (96-108); Cholesterol 139 mg/dL (<200); Estimated Glomerular Filt Rate > 60; Glucose Random 100 mg/dL (60-115); HDL Cholesterol 43 mg/dL (>40); LDL Cholesterol Calculated 85 mg/dL (<100); Potassium 4.4 mmol/L (3.3-5.1); Sodium 140 mmol/L (135-145); Total Protein 7.4 g/dL (6.5-8.0); Triglycerides 59 mg/dL (<150)
[2024-01-09 10:06] LABS: Free T4 (Free Thyroxine) 1.03 ng/dL (0.71-1.85); TSH reflex Free T4 1.09 uIU/mL (0.32-4.0)
[2024-01-09 10:19] LABS: Folate 13.2 ng/mL (> or = 4.0); Vitamin B12 691 pg/mL (200-900)
[2024-01-14 15:28] LABS: Vitamin D 25-OH, D2 <4 ng/mL; Vitamin D 25-OH, D3 27 ng/mL; Vitamin D 25-OH, Total 27 ng/mL (30-100)
== END 2024-01-09 08:17 | disposition home or self-care (01) ==
LOC: HO.LAB 08:16
DX: Z00.00 Encounter for general adult medical examination without abnormal findings (principal)
CPT/HCPCS: 36415; 80053; 80061; 82306; 82607; 82746; 84439; 84443; 85025

== ENCOUNTER 2024-06-23 14:23 | Outpatient (REF) | payer OTHER, SELFPAY ==
[2024-06-23 15:53] LABS: MANUAL DIFF FLAG NO
[2024-06-23 16:21] LABS: Basophils Percent Auto 0.4 % (0-2); Eosinophils Absolute Auto 0.1 X10*3/uL (0.0-0.4); Eosinophils Percent Auto 1.3 % (0-4); Hematocrit 40.3 % (37.0-47.0); Hemoglobin 12.9 g/dl (12.0-16.0); Imm Gran Abs Auto 0.03 X10*3/uL (0.00-0.03); Imm Gran Pct Auto 0.3 % (0.0-0.4); Mean Corpuscular Hemoglobin 24.7 pg (27.0-33.0); Mean Corpuscular Volume 77.2 fL (80.0-98.0); Mean Platelet Volume 10.2 fL (9.4-12.3); Monocytes Absolute Auto 0.7 X10*3/uL (0.1-1.2); Monocytes Percent Auto 7.3 % (2-11); Neutrophils Absolute Auto 7.2 x10*3/uL (2.0-8.3); Neutrophils Percent Auto 70.7 % (45-73); Platelet Count 258 X10*3/uL (160-400); Red Blood Count 5.22 X10*6/uL (4.20-5.50); Red Cell Distribution Width 14.5 % (11.0-16.0); White Blood Count 10.2 X10*3/uL (4.8-10.8)
[2024-06-23 17:10] LABS: Alanine Aminotransferase 23 U/L (0-31); Albumin Level 4.3 g/dL (3.5-5.0); Alkaline Phosphatase 70 U/L (39-117); Anion Gap 11 (12-20); Aspartate Amino Transferase 23 U/L (5-31); Bilirubin Total 0.4 mg/dL (0.0-1.0); Blood Urea Nitrogen 12 mg/dL (9-16); Calcium 9.6 mg/dL (8.4-10.2); Carbon Dioxide 24 mmol/L (22-29); Chloride 106 mmol/L (96-108); Estimated Glomerular Filt Rate > 60; Glucose Random 85 mg/dL (60-115); Iron 61 mcg/dL (30-160); Percent Iron Saturation 17 % (15-50); Potassium 4.3 mmol/L (3.3-5.1); Sodium 137 mmol/L (135-145); Total Iron Binding Capacity 354 mcg/dL (228-428); Total Protein 8.2 g/dL (6.5-8.0); Unsaturated Iron Binding 293 ug/dL
[2024-06-23 17:16] LABS: Cortisol Random 2.6 ug/dL
[2024-06-23 17:28] LABS: TSH reflex Free T4 1.25 uIU/mL (0.32-4.0); Vitamin D 25-OH Total 31.5 ng/mL (>30)
[2024-06-23 17:31] LABS: Folate 12.1 ng/mL (> or = 4.0); Vitamin B12 499 pg/mL (200-900)
== END 2024-06-23 14:24 | disposition home or self-care (01) ==
LOC: HO.LAB 14:23
DX: N93.9 Abnormal uterine and vaginal bleeding, unspecified (principal); G47.10 Hypersomnia, unspecified; Z00.00 Encounter for general adult medical examination without abnormal findings
CPT/HCPCS: 36415; 80053; 82306; 82533; 82607; 82746; 83540; 84443; 85025; 96127

== ENCOUNTER 2024-06-23 14:23 | Outpatient (AMB) | payer OTHER, SELFPAY ==
--- NOTE | 2024-06-23 14:34 | MHC.PC.OV ---
Vital Signs 06/23/24 14:36 Height 5 ft 3 in Weight 196 lb 8 oz BMI 34.8 BP 130/60 Blood Pressure Location Rt brachial Position Sitting Pulse 73 Pulse Source Pulse Oximeter Temp 97.3 F Temp Source Temporal Artery Scan Pulse Oximetry (%) 94 Oxygen Delivery Method Room Air Intake Visit Reasons: Labs-Results Intake Note: Patient is here to follow up on headaches, insomnia, fatigues, hot/cold flashes. Requesting lab order. Upholstery Handler Required: No Channel Business Manager: Not Required per policy Accompanied by: Self / Same As Patient Allergies No Known Allergies [No Known Allergies*] Allergy (Verified 06/23/24 14:36) Medication List - Last Reconciled 06/23/24 by Ashley Ewing PA-C aj-wj-vptg-FA-Ca carb-vit K 18 mg-400 mcg- 500 mg-50 mcg (Women's Multivitamin) 1 tab PO DAILY Tobacco use date assessed: 06/23/24 Dental Screening Dental Screen Date: 06/23/24 Did you have a dental visit in the last 12 months?: Yes Did you have a dental problem in the last 6 months where you did not have access to dental care?: No Was dental information given to patient?: Patient has dentist HPI Labs-Results HPI Details 38-year-old female with past medical history of morbid obesity and chronic pain syndrome last seen 12/2023 coming in for follow up. presenting with symptoms of insomnia, irritability, and possible hormonal imbalance. Within the last week, she has experienced increased twitching of the eyes, headaches, irritability, and insomnia. The chronological onset of these symptoms coincides with significant life stressors, notably ongoing child custody proceedings. Menstrual periods are regular but are slightly elongated compared to previous cycles. [facility] Medical History Lumbar spondylosis Pilar cyst of scalp Nasal congestion Sinusitis History of lipoma Surgical History H/O removal of cyst History of bilateral breast reduction surgery History of bilateral salpingectomy History of section Family History Maternal Grandmother Diabetes Hypertension Glaucoma Maternal Grandfather Diabetes Hypertension Maternal Aunt Breast cancer Family/Other Pancreatic cancer Social History Housing: House Alcohol intake: never Patient Tobacco Use Status: Never used Tobacco Tobacco use type: Cigarette e-Cigarette/Vaping Use: Never Used Second Hand Smoke Exposure: No service: No 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 1. Little interest or pleasure in doing things: several days 2. Feeling down, depressed, or hopeless: several days 3. Trouble falling or staying asleep, or sleeping too much: nearly every day 4. Feeling tired or having little energy: nearly every day 5. Poor appetite or overeating: not at all 6. Feeling bad about yourself - or that you are a failure or have let yourself or your family down: not at all 7. Trouble concentrating on things, such as reading the newspaper or watching television: several days 8. Moving or speaking so slowly that other people could have noticed. Or the opposite - being so fidgety or restless that you have been moving around a lot more than usual: not at all 9. Thoughts that you would be better off or of hurting yourself in some way: not at all Total score: 9 Depression Screening Interpretation: Positive Depression Screening Follow-up: Declines treatment Depression Screening Done: Yes Source: Developed by Drs. Edouard Morales, Adrienne Tate, Jf Ann and colleagues, with an educational julián from [employer]. Thrive Questionnaire Date Thrive assessed: 06/23/24 I am a: Patient What is your living situation today?: I have a steady place to live Within the past 12 months, did the food you bought not last and you didn't have the money to get more?: Never true Within the past 12 months, did you worry whether your food would run out before you got money to buy more?: Never true Do you have trouble paying for medicines?: No Do you have trouble getting transportation to medical appointments?: No Do you have trouble paying your heating and electricity bill?: No Do you have trouble taking care of your child, family member or friend?: No Do you have trouble with day-to-day activities such as bathing, preparing meals, shopping, managing finances, etc.?: No Are you currently unemployed and looking for a job?: No Are you interested in more education?: No Please select the resources that you would like help with: None Currently or been in a relationship where the following occur: No concerns reported THRIVE Score: 0 AUDIT C Alcohol Use Questionnaire (AUDIT-C) 1. How often do you have a drink containing alcohol?: Never 3. How often do you have six or more drinks on one occasion?: Never Total Score: 0 GLADYS-7 AMB Questionnaire GLADYS-7 Date GLADYS - 7 assessed: 06/23/24 Feeling nervous, anxious, or on edge: 1 = Several days Not being able to stop or control worryin = Several days Worrying too much about different things: 1 = Several days Trouble relaxin = More than half the days Being so restless that it is hard to sit still: 0 = Not at all Becoming easily annoyed or irritable: 2 = More than half the days Feeling afraid as if something awful might happen: 0 = Not at all Total GLADYS-7 score (0-4 normal; 5-9 mild; 10-14 moderate; 15-21 severe): 7 Source: Developed by Drs. Edouard Morales, Adrienne Tate, Jf Ann and colleagues, with an educational julián from [employer]. GLADYS-7 Assessment Billing GLADYS-7 Assessment Tool: GLADYS-7 Assessment 62620 Review of Systems Const Denies body aches, Denies chills, Reports fatigue, Denies fever(s), Denies headache(s) and Denies poor appetite Eyes Reports no additional complaints ENT Denies dysphagia, Denies dizziness, Denies headache(s) and Denies odynophagia Card Denies chest pain, Denies syncope, Denies edema, Denies irregular heart rhythm, Denies lightheadedness and Denies dyspnea Resp Denies cough and Denies dyspnea GI Denies abdominal pain, Denies constipation, Denies dysphagia, Denies diarrhea, Denies nausea, Denies odynophagia and Denies vomiting Reports no additional complaints Musc Reports no additional complaints and Denies abnormal gait Skin/Breast Reports system reviewed and no additional complaints, except as documented Neuro Denies abnormal gait, Denies dizziness, Denies syncope and Denies headache(s) Psych Reports no additional complaints Endo Reports fatigue Physical exam (Primary Care) Vital Signs: Last Vital Signs Temp 97.3 F 06/23/24 14:36 Pulse 73 06/23/24 14:36 BP 130/60 06/23/24 14:36 Pulse Ox 94 06/23/24 14:36 Oxygen Delivery Method Room Air 06/23/24 14:36 BMI result Body Mass Index 34.8 Tobacco/Smoking Status: Tobacco use Status Tobacco use date assessed 06/23/24 06/23/24 14:42 Patient Tobacco Use Status Never used Tobacco 06/23/24 14:35 Tobacco use type Cigarette 06/23/24 14:35 e-Cigarette/Vaping Use Never Used 06/23/24 14:35 PHQ-9: PHQ-9 Score PHQ-9: Total score 9 06/23/24 14:42 Depression Screening Interpretation: Positive Depression Screening Follow-up: Declines treatment Thrive Assessment: Date of Thrive Assessment Date Thrive assessed 06/23/24 06/23/24 14:35 Currently or been in a relationship where the following occur: No concerns reported Const General: cooperative, healthy appearing, comfortable and no acute distress Orientation/consciousness: patient oriented x3 HENMT Head: Yes normocephalic Ears: hearing grossly normal bilaterally General nose exam: Normal external nose present Eyes General: appearance normal, both eyes and all related structures Conjunctivae: conjunctivae normal Neck Neck: Yes full ROM and Yes no lymphadenopathy Resp Effort & Inspection: normal respiratory effort Auscultation: clear to auscultation bilaterally, no crackles, no rales, no rhonchi and no wheezes Cardio Rate: regular rate Rhythm: regular rhythm Skin General skin exam: no rashes or lesions noted Neuro General: patient oriented x3 Gait exam (Neuro): Normal gait present Extrem General: Yes normal to inspection, Yes full ROM and No edema Psych Affect: normal affect Attitude: cooperative Insight: Good insight present (Psych) Judgement: Good judgement present (Psych) Coding Level of Care Code Est Pt Level 3 (22678) Diagnoses BMI 32.0-32.9,adult Z68.32 Abnormal uterine bleeding N93.9 Hypersomnolence G47.10 Additional Codes GLADYS-7 Assessment Billing - GLADYS-7 Assessment Tool: GLADYS-7 Assessment 64206 ([id number]) Assessment & Plan Assessment & Plan (1) BMI 32.0-32.9,adult: Code(s): Z68.32 - Body mass index [BMI] 32.0-32.9, adult Category: Medical Plan: Healthy diet and regular exercise is encouraged. (2) Abnormal uterine bleeding: Code(s): N93.9 - Abnormal uterine and vaginal bleeding, unspecified Category: Medical Plan: Patient having previous history of abnormal uterine bleeding continue to follow with gynecology. (3) Hypersomnolence: Code(s): G47.10 - Hypersomnia, unspecified Category: Medical Plan: We will conduct a comprehensive blood panel, including a thyroid function test, kidney, liver, and electrolyte panels, vitamin levels, and an iron panel with a cortisol level. A home-based sleep study will be conducted to assess any underlying sleep disturbances. Hydroxyzine is prescribed on an as-needed basis to aid with sleep and manage anxiety. In two months, we will evaluate the sleep study results and blood work to guide next steps and address any identified sleep disorders or hormonal imbalances as necessary. Plan Patient was informed and verbally consented to the use of an ambient scribe for clinic note documentation during this visit. This note was constructed using voice recognition software. While every effort has been made to ensure accuracy and cardiology clinical consultant, still areas may have been included sometimes these areas may affect the content or meeting of the given symptoms. Total time spent caring for the patient today was 20 minutes. This includes time spent before the visit reviewing the chart, time spent during the visit, and time spent after the visit and documentation. Orders: Orders Complete Blood Count Auto Diff Today Z00.00 - Encounter for general adult medical examination without abnormal findings IRON PROFILE Today N93.9 - Abnormal uterine and vaginal bleeding, unspecified TSH reflex Free T4 Today G47.10 - Hypersomnia, unspecified, Z00.00 - Encounter for general adult medical examination without abnormal findings Vitamin D 25-OH Total Today G47.10 - Hypersomnia, unspecified, Z00.00 - Encounter for general adult medical examination without abnormal findings Comprehensive Met. Panel Today Z00.00 - Encounter for general adult medical examination without abnormal findings Vitamin B12 and Folate Today G47.10 - Hypersomnia, unspecified, Z00.00 - Encounter for general adult medical examination without abnormal findings RT home sleep study Today G47.10 - Hypersomnia, unspecified Cortisol Random Today G47.10 - Hypersomnia, unspecified, Z68.32 - Body mass index [BMI] 32.0-32.9, adult Medications: New hydroxyzine HCl 25 mg PO BEDTIME 30 tabs 0RF
[2024-06-23 14:36] VITALS: BP 130/60; PULSE 73; TEMP 36.3; O2SAT 94; BMI 34.8
== END 2024-06-23 15:12 | disposition home or self-care (01) ==
DX: Z68.32 Body mass index [BMI] 32.0-32.9, adult (principal); N93.9 Abnormal uterine and vaginal bleeding, unspecified; G47.10 Hypersomnia, unspecified

== ENCOUNTER 2024-08-25 08:43 | Outpatient (AMB) | payer OTHER, SELFPAY ==
--- NOTE | 2024-08-25 08:43 | A.OFFPC_ITS ---
Intake Visit Reasons: 2 Month F/U Allopathic Doctor Required: No Doctor Of Chiropractic: Not Required per policy Accompanied by: Self / Same As Patient Allergies No Known Allergies [No Known Allergies*] Allergy (Verified 08/25/24 09:07) Medication List - Last Reconciled 08/25/24 by Ashley Ewing PA-C hydroxyzine HCl 25 mg PO BEDTIME [id number]-dv-htnu-FA-Ca carb-vit K 18 mg-400 mcg- 500 mg-50 mcg (Women's Multivitamin) 1 tab PO DAILY Tobacco use date assessed: 06/23/24 Dental Screening Dental Screen Date: 06/23/24 HPI 2 Month F/U HPI Details 39-year-old female with past medical his tory of morbid obesity and chronic pain syndrome last seen 06/2024 presenting via telehealth for follow up on blood work. Patient tells us today her sleep has been improving she is not noticing night sweats any longer and has been sleeping throughout the night. She does frequently get up to use the bathroom but otherwise we will stay sleeping. She did start taking a vitamin-D supplement which has been helping with her energy levels. Her sleep study is scheduled for October. [facility] Medical History Lumbar spondylosis Pilar cyst of scalp Nasal congestion Sinusitis History of lipoma Surgical History H/O removal of cyst History of bilateral breast reduction surgery History of bilateral salpingectomy History of section Family History Maternal Grandmother Diabetes Hypertension Glaucoma Maternal Grandfather Diabetes Hypertension Maternal Aunt Breast cancer Family/Other Pancreatic cancer Social History Housing: House Alcohol intake: never Patient Tobacco Use Status: Never used Tobacco Tobacco use type: Cigarette e-Cigarette/Vaping Use: Never Used Second Hand Smoke Exposure: No service: No 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: 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 How many drinks containing alcohol do you have on a typical day when you are drinking?: 1 or 2 Total Score: 0 GLADYS-7 AMB Questionnaire GLADYS-7 Date GLADYS - 7 assessed: 06/23/24 Source: Developed by Drs. Edouard Morales, Adrienne Tate, Jf Ann and colleagues, with an educational julián from [employer]. Review of Systems Const Denies body aches, Denies chills, Denies fever(s), Denies headache(s) and Denies poor appetite Eyes Reports no additional complaints ENT Denies dysphagia, Denies dizziness, Denies headache(s) and Denies odynophagia Card Denies chest pain, Denies syncope, Denies edema, Denies irregular heart rhythm, Denies lightheadedness and Denies dyspnea Resp Denies cough and Denies dyspnea GI Denies abdominal pain, Denies constipation, Denies dysphagia, Denies diarrhea, Denies nausea, Denies odynophagia and Denies vomiting Reports no additional complaints Musc Reports no additional complaints and Denies abnormal gait Skin/Breast Reports system reviewed and no additional complaints, except as documented Neuro Denies abnormal gait, Denies dizziness, Denies syncope and Denies headache(s) Psych Reports no additional complaints Physical exam (Primary Care) Tobacco/Smoking Status: Tobacco use Status Tobacco use date assessed 06/23/24 08/25/24 08:45 Patient Tobacco Use Status Never used Tobacco 08/25/24 08:45 Tobacco use type Cigarette 08/25/24 08:45 e-Cigarette/Vaping Use Never Used 08/25/24 08:45 Thrive Assessment: Date of Thrive Assessment Date Thrive assessed 06/23/24 08/25/24 08:45 Const General: cooperative, healthy appearing, comfortable and no acute distress Orientation/consciousness: patient oriented x3 HENMT Head: Yes normocephalic Ears: hearing grossly normal bilaterally General nose exam: Normal external nose present Eyes General: appearance normal, both eyes and all related structures Conjunctivae: conjunctivae normal Neck Neck: Yes full ROM and Yes no lymphadenopathy Resp Effort & Inspection: normal respiratory effort Auscultation: clear to auscultation bilaterally, no crackles, no rales, no rhonchi and no wheezes Cardio Rate: regular rate Rhythm: regular rhythm Skin General skin exam: no rashes or lesions noted Neuro General: patient oriented x3 Gait exam (Neuro): Normal gait present Extrem General: Yes normal to inspection, Yes full ROM and No edema Psych Affect: normal affect Attitude: cooperative Insight: Good insight present (Psych) Judgement: Good judgement present (Psych) Telehealth Telehealth Telehealth Platform: Telephone Location of provider rendering services: practice address Location of patient: address on file Patient Identification confirmed using: Name, : Yes Telehealth method: voice only Patient verbally consented to treatment: Yes Patient verbally consented to billing insurance company: Yes Patient informed of any privacy concerns related to visit: Yes Coding Level of Care Code Tele Est Pt Level 3 (49714) Diagnoses Hypersomnolence G47.10 BMI 32.0-32.9,adult Z68.32 Assessment & Plan Assessment & Plan (1) Hypersomnolence: Code(s): G47.10 - Hypersomnia, unspecified Category: Medical Plan: Sleep study scheduled for October 2024. Blood work unremarkable patient has been taking vitamin-D supplement for mildly low vitamin-D levels. She has noticed an improvement in her energy levels with the supplementation. She has not been using developing a dependence on this medication. Advised patient she may also use [id number] magnesium or melatonin for sleep as well. Plan to follow up at next visit to review sleep study results (2) BMI 32.0-32.9,adult: Code(s): Z68.32 - Body mass index [BMI] 32.0-32.9, adult Category: Medical Plan: Healthy diet and regular exercise is encouraged. Plan Patient was informed and verbally consented to the use of an ambient scribe for clinic note documentation during this visit. This note was constructed using voice recognition software. While every effort has been made to ensure accuracy and irrigator overhead, still areas may have been included sometimes these areas may affect the content or meeting of the given symptoms. Total time spent caring for the patient today was 20 minutes. This includes time spent before the visit reviewing the chart, time spent during the visit, and time spent after the visit and documentation.
== END 2024-08-25 09:20 | disposition home or self-care (01) ==
LOC: HO.HMCH 08:43
DX: G47.10 Hypersomnia, unspecified (principal); Z68.32 Body mass index [BMI] 32.0-32.9, adult

== ENCOUNTER → 2024-08-25 08:43 | Outpatient (BNVA) | payer OTHER, SELFPAY | DX: Z13.89 Encounter for screening for other disorder (principal) ==

== ENCOUNTER → 2024-10-20 11:00 | Outpatient (REF) | payer OTHER, SELFPAY | LOC: HO.SL 11:00 | DX: G47.10 Hypersomnia, unspecified (principal) | CPT/HCPCS: 95806 ==

== ENCOUNTER → 2024-10-20 11:07 | Outpatient (BNV) | payer OTHER, SELFPAY | PROVIDERS: Visit Provider Internal Medicine | DX: G47.33 Obstructive sleep apnea (adult) (pediatric) (principal) | CPT/HCPCS: 95806 ==

== ENCOUNTER 2024-10-24 09:14 | Outpatient (REF) | payer OTHER, SELFPAY ==
--- NOTE | ~2024-10-24 | MM_ITS ---
EXAMINATION: MM SCREENING DIGITAL BREAST TOMOSYNTHESIS, BILATERAL CLINICAL INFORMATION: Screening. Asymptomatic. COMPARISON: Mammography: Baseline. TECHNIQUE: Digital breast mammography with tomosynthesis is performed in both the craniocaudal and mediolateral oblique views along with computer-aided detection (CAD). FINDINGS: There are scattered areas of fibroglandular density (ACR BI-RADS breast composition Category b). Right: Focal asymmetry upper outer quadrant posterior depth which could represent a patch of asymmetric normal breast tissue. No suspicious calcifications or other abnormal findings. Left: There are no significant masses, abnormal calcifications, or other abnormalities. MM/MM tomosynthesis screening BI IMPRESSION: Additional imaging is recommended ASSESSMENT: BI-RADS BI-RADS 0 - Incomplete: Needs additional Imaging. RECOMMENDATION: 1. Additional views of the right breast. 2. Targeted ultrasound if warranted after review of the additional views. 3. Radiology department staff will contact the patient for additional imaging. Additional Imaging required This examination should not preclude the clinical evaluation of a suspicious palpable abnormality. This patient's information was entered into a reminder system with a target due date for their next mammogram. Electronically signed by: Jaquelin Hinson DO 10/28/2024 08:55 AM EDT
== END 2024-10-24 09:15 | disposition home or self-care (01) ==
LOC: HO.MAMMO 09:14
DX: Z12.31 Encounter for screening mammogram for malignant neoplasm of breast (principal)
CPT/HCPCS: 77063; 77067

== ENCOUNTER → 2024-10-24 09:15 | Outpatient (BNV) | payer OTHER, SELFPAY | PROVIDERS: Visit Provider Internal Medicine | DX: Z12.31 Encounter for screening mammogram for malignant neoplasm of breast (principal) | CPT/HCPCS: 77063; 77067 ==

== ENCOUNTER 2024-10-25 09:04 | Outpatient (AMB) | payer OTHER, SELFPAY ==
[2024-10-25 09:13] VITALS: BP 102/60; BMI 34.7
--- NOTE | 2024-10-25 09:13 | MHC.OFFVIS ---
Vital Signs 10/25/24 09:13 Height 5 ft 3 in Weight 196 lb BMI 34.7 BP 102/60 Intake Visit Reasons: co-test Hand Assembler Required: No Information Interpreted: non-clinical & clinical Salon Professional: Salon Professional Present (Alyssa WHIPPLE) Accompanied by: Self / Same As Patient Allergies No Known Allergies (No Known Allergies*) Allergy (Verified 10/25/24 09:22) Is last menstrual period known: Yes HPI Comments Details: Presenting for annual exam. No complaints. Last Pap/HPV was negative/HPV positive, HPV 16/18/45 negative in 06/27 Last Mammogram was in 10/24/2024, results are still pending [facility] Medical History HPV in female Lumbar spondylosis Pilar cyst of scalp Nasal congestion Sinusitis History of lipoma Surgical History H/O removal of cyst History of bilateral breast reduction surgery History of bilateral salpingectomy History of section Family History Maternal Grandmother Diabetes Hypertension Glaucoma Maternal Grandfather Diabetes Hypertension Maternal Aunt Breast cancer Family/Other Pancreatic cancer Social History Housing: House Alcohol intake: never Patient Tobacco Use Status: Never used Tobacco Tobacco use type: Cigarette e-Cigarette/Vaping Use: Never Used Second Hand Smoke Exposure: No service: No 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: 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 Hearing needs: No Vision needs: Yes (glasses and contacts) Female Reproductive History Menstrual Age of Menarche: 13 Date of last pap smear: 06/10/23 Date of Mammogram: 10/24/24 Review of Systems Const All systems reviewed & are unremarkable except as noted in HPI and below Card Reports as per HPI Resp Reports as per HPI GI Reports as per HPI and Reports no additional complaints Reports as per HPI Physical Exam Vital Signs: Last Vital Signs BP 102/60 10/25/24 09:13 BMI result Body Mass Index 34.7 Const General: cooperative, healthy appearing and comfortable Chest Chest palpation & inspection: normal inspection of the chest and normal palpation of entire chest wall Breast/axilla inspection: normal inspection of the breasts and normal inspection of the axillae Breast/axilla palpation: normal palpation of the breasts, normal palpation of the axillae and no axillary lymphadenopathy Resp Effort & Inspection: normal respiratory effort Auscultation: clear to auscultation bilaterally Percussion: percussion normal Cardio Palpation: normal PMI Rate: regular rate Rhythm: regular rhythm Heart sounds: no murmurs and no rubs Peripheral pulses: Peripheral pulses 2+ throughout GI Inspection: Yes normal to inspection Palpation (GI): Soft to palpation, nontender, no guarding, not rigid and No hepatosplenomegaly present Percussion: Yes normal to percussion Auscultation: normal bowel sounds Rectal Exam - Female: deferred General: Yes bladder normal to palpation External Female Exam: No lesion Speculum Exam - Vagina: normal appearance of the vagina, normal palpation, normal vaginal discharge and not erythematous Speculum Exam - Cervix: normal appearance of the cervix and normal palpation Bimanual exam- vagina & uterus: normal bimanual exam, normal palpation, uterine size normal, bladder normal to palpation, consistency normal and normal palpation Bimanual Exam- Adnexa, other: normal adnexae, no masses and no tenderness Assessment & Plan Assessment & Plan (1) Well woman exam: Comment: Negative Pap/HPV positive in 06/27 Code(s): Z01.419 - Encounter for gynecological examination (general) (routine) without abnormal findings Category: Medical Plan: Cotesting done. Instructions given the patient to schedule next screening Mammogram in 10/27. Counseled the patient about the recommended dietary allowance of 1000 mg of Calcium & 600 IU of vitamin D. The patient was instructed to perform monthly self-breast exams and to schedule an annual exam in a year; All questions answered and the patient verbalized understanding. Instructed the patient to schedule annual exam in a year Coding Level of Care Code Est Pt Prev Care 40-64y(53835) Diagnoses Well woman exam Z01.419
== END 2024-10-25 09:36 | disposition home or self-care (01) ==
LOC: HO.HWS 09:04
PROVIDERS: Visit Provider Obstetrics & Gynecology
DX: Z01.419 Encounter for gynecological examination (general) (routine) without abnormal findings (principal)
CPT/HCPCS: 99396; 99459

== ENCOUNTER 2024-10-25 09:04 | Outpatient (REF) | payer OTHER, SELFPAY ==
[2024-10-27 14:40] LABS: HPV Genotype 16 Negative (Negative); HPV Genotype 18 Negative (Negative); HPV High Risk Negative (Negative)
== END 2024-10-25 09:05 | disposition home or self-care (01) ==
LOC: HO.LNP 09:04
PROVIDERS: Visit Provider Obstetrics & Gynecology
DX: Z01.419 Encounter for gynecological examination (general) (routine) without abnormal findings (principal); B97.7 Papillomavirus as the cause of diseases classified elsewhere
CPT/HCPCS: 87626; 88175

== ENCOUNTER 2024-11-21 13:17 | Outpatient (AMB) | payer OTHER, SELFPAY ==
[2024-11-21 13:45] VITALS: BP 106/60; PULSE 96; TEMP 37.4; O2SAT 98; BMI 33.7
--- NOTE | 2024-11-21 13:45 | AM.OFFWIN_ITS ---
Intake Vital Signs 11/21/24 13:45 Height 5 ft 3 in Weight 190 lb BMI 33.7 BP 106/60 Blood Pressure Location Rt brachial Position Sitting Pulse 96 Pulse Source Pulse Oximeter Temp 99.3 F Temp Source Oral Pulse Oximetry (%) 98 Oxygen Delivery Method Room Air Intake Visit Reasons: EP dizziness Intake Note: presents with dizziness since 11/09/24 after being on a cruise Patient Tobacco Use Status: Never used Tobacco Allergies No Known Allergies (No Known Allergies*) Allergy (Verified 11/21/24 13:47) Do you need a note to return to daycare/school/sports/work: No HPI EP dizziness HPI Details This is a 39-year-old female patient who presents to the walk-in clinic today with nearly 12 days of vertigo. On 11/09, she Rogelio marked from a 9 day cruise. Upon getting off cruise, she quickly developed feelings of dizziness/vertigo. Denies any nausea or vomiting. She went to the [facility] emergency department the following day, and had a positive COVID test at that time. She has since tested negative for COVID, however has ongoing vertigo symptoms. She states that she has a sensation that the room is constantly swaying back and forth. She contacted her PCP, who prescribed her meclizine, however has not been able to see her in person yet. Patient states the me clizine has not been helping. She denies any ear pain or any other symptoms at this time. [facility] Medical History HPV in female Lumbar spondylosis Pilar cyst of scalp Nasal congestion Sinusitis History of lipoma Surgical History H/O removal of cyst History of bilateral breast reduction surgery History of bilateral salpingectomy History of section Family History Maternal Grandmother Diabetes Hypertension Glaucoma Maternal Grandfather Diabetes Hypertension Maternal Aunt Breast cancer Family/Other Pancreatic cancer Social History Housing: House Alcohol intake: never Patient Tobacco Use Status: Never used Tobacco Tobacco use type: Cigarette e-Cigarette/Vaping Use: Never Used Second Hand Smoke Exposure: No service: No 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: 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 Hearing needs: No Vision needs: Yes (glasses and contacts) Female Reproductive History Menstrual Age of Menarche: 13 Review of Systems Const All systems reviewed & are unremarkable except as noted in HPI and below Physical Exam Vital Signs: Last Vital Signs Temp 99.3 F 11/21/24 13:45 Pulse 96 11/21/24 13:45 BP 106/60 11/21/24 13:45 Pulse Ox 98 11/21/24 13:45 Oxygen Delivery Method Room Air 11/21/24 13:45 BMI result Body Mass Index 33.7 Const General: cooperative, healthy appearing, comfortable and no acute distress Orientation/consciousness: patient oriented x3 Limitations: no limitations HEENT Head: Yes normal to inspection and Yes normocephalic Ears: hearing grossly normal bilaterally, external ears normal and TM's normal bilaterally General nose exam: Normal external nose present Face and sinus: Yes normal facial exam and Yes sinuses nontender Mouth: Normal oral and palatal mucosa present Eyes Other: no nystagmus, negative [place]-Hallpike test Visual Soliz: normal visual soliz by confrontation Alignment and Position: alignment normal Periorbital: periorbital findings normal Eyelids: Yes eyelids normal Conjunctivae: conjunctivae normal Sclerae: sclerae normal Pupils: Equal, round and reactive pupils present and Pupil accommodation reflex normal EOM: EOMs intact bilaterally Direct Ophthalmoscopy: normal light reflex and no photophobia Neck Neck: Yes no lymphadenopathy Resp Effort & Inspection: normal respiratory effort Skin General skin exam: no rashes or lesions noted Neuro General: patient oriented x3, gait normal, tone normal and no focal motor deficits Cranial nerves: Yes Equal, round and reactive pupils present Cognition (Neuro): normal cognition Psych Appearance: grossly normal Mental Status: mental status grossly normal Speech and movement: Normal speech and movement present Assessment & Plan Assessment & Plan (1) Vertigo: Code(s): R42 - Dizziness and giddiness Plan: Ongoing vertigo. Will increase meclizine dose to see if this provides her any benefit. She may try an [id number] decongestant. She may benefit from a course of physical therapy, which she would like to pursue. I have placed referral for PT at [facility] [place]. I encouraged patient to follow up with her PCP, particularly if the symptoms are persistent following conservative measures. Patient verbalizes understanding and agrees with plan discussed today. Orders: Orders PT Evaluation and Treatment Today R42 - Dizziness and giddiness Medications: New meclizine 25 mg PO BID PRN 30 tabs 0RF dizziness R42 - Dizziness and giddiness Coding Level of Care Code Est Pt Level 4 (71315) Diagnoses Vertigo R42
== END 2024-11-21 15:01 | disposition home or self-care (01) ==
PROVIDERS: Visit Provider Nurse Practitioner Family
DX: R42 Dizziness and giddiness (principal)

== ENCOUNTER 2024-12-09 08:56 | Outpatient (REF) | payer OTHER, SELFPAY ==
--- NOTE | ~2024-12-09 | MM_ITS ---
EXAMINATION: 1. MM DIAGNOSTIC DIGITAL BREAST TOMOSYNTHESIS, RIGHT 2. Targeted ultrasound of the right breast CLINICAL INFORMATION: Callback from screening for right breast focal asymmetry in the upper-outer quadrant posterior depth. COMPARISON: October 24, 2024. TECHNIQUE: Digital breast tomosynthesis is performed in full-field ML 90 degrees view along with computer-aided detection (CAD). Synthesized 2D images are generated from the tomosynthesis. Spot compression tomosynthesis images were also obtained. FINDINGS: BREAST COMPOSITION: There are scattered areas of fibroglandular density (ACR BI-RADS breast composition Category b). RIGHT BREAST: Previous history of reduction mammoplasty in 2017. Previously described focal asymmetry in the upper outer quadrant at posterior depth is pliable on today's additional images. Targeted ultrasound of the right breast was performed at the location of the mammographic finding. No suspicious findings seen during the survey of the right upper quadrant. MM/MM tomosynthesis added views R IMPRESSION: RIGHT BREAST: Focal asymmetry in the upper-outer quadrant at posterior depth likely represents asymmetric normal breast tissue secondary to the previous reduction mammoplasty. Probably benign. A 6-month follow-up mammogram is recommended. ASSESSMENT: BI-RADS 3 - Probably benign finding(s) - 6 month follow-up suggested RECOMMENDATION: 6 Month F/U Results were provided to the patient at time of visit by the technologist. This patient's information was entered into a reminder system with a target due date for their next mammogram. Electronically signed by: Cathleen Castillo MD 12/09/2024 10:05 AM EDT
== END 2024-12-09 08:57 | disposition home or self-care (01) ==
LOC: HO.MAMMO 08:56
DX: Z12.31 Encounter for screening mammogram for malignant neoplasm of breast (principal)
CPT/HCPCS: 76642; 77061; 77065

== ENCOUNTER → 2024-12-09 09:00 | Outpatient (BNV) | payer OTHER, SELFPAY | PROVIDERS: Visit Provider Radiology Body Imaging | DX: R92.8 Other abnormal and inconclusive findings on diagnostic imaging of breast (principal) | CPT/HCPCS: 76642; 77061; 77065 ==

== ENCOUNTER 2025-01-11 14:58 | Outpatient (AMB) | payer OTHER, SELFPAY ==
--- NOTE | 2025-01-11 15:27 | MHC.PC.OV ---
Vital Signs 01/11/25 15:30 Height 5 ft 3 in Weight 196 lb 4 oz BMI 34.8 BP 126/76 Blood Pressure Location Lt brachial Position Sitting Pulse 87 Pulse Source Pulse Oximeter Pulse Oximetry (%) 98 Oxygen Delivery Method Room Air Intake Visit Reasons: Annual pe Director Of Marketing And Promotions Required: No Accompanied by: Self / Same As Patient Allergies No Known Allergies (No Known Allergies*) Allergy (Verified 01/11/25 15:40) Medication List - Last Reconciled 01/11/25 by Ashley Ewing PA-C cholecalciferol (vitamin D3) 25 mcg PO DAILY hydroxyzine HCl 25 mg PO BEDTIME PRN magnesium 250 mg PO DAILY meclizine 12.5 mg PO TID PRN meclizine 25 mg PO BID PRN [id number] carb-vit K 18 mg-400 mcg- 500 mg-50 mcg (Women's Multivitamin) 1 tab PO DAILY Tobacco use date assessed: 01/11/25 Dental Screening Dental Screen Date: 01/11/25 Did you have a dental visit in the last 12 months?: Yes Did you have a dental problem in the last 6 months where you did not have access to dental care?: No Was dental information given to patient?: Patient has dentist HPI Annual pe HPI Details 39-year-old female with past medical history of morbid obesity and chronic pain syndrome last seen 08/2024 coming in for annual exam. Presenting for an annual wellness visit. Dizziness Experienced during a cruise, resolved with increased activity. Vertigo Likely related to an upper respiratory infection, resolved without therapy. Sleep apnea Mild, diagnosed via sleep study, advised to sleep on her side. Flat feet and plantar fasciitis Reports foot pain, advised on exercises and footwear. History of acne and folliculitis, ongoing dermatitis issues. She is seeing Dr. Glynn mammogram: 12/2024 pap smear: 10/2024 eye doctor: [facility] yearly vaccines: [facility] Medical History Obesity (BMI 30-39.9) Morbid obesity BMI 32.0-32.9,adult BMI 33.0-33.9,adult Adjustment disorder, unspecified HPV in female Lumbar spondylosis Pilar cyst of scalp Nasal congestion Sinusitis History of lipoma Surgical History H/O removal of cyst History of bilateral breast reduction surgery History of bilateral salpingectomy History of section Family History Maternal Grandmother Diabetes Hypertension Glaucoma Maternal Grandfather Diabetes Hypertension Maternal Aunt Breast cancer Family/Other Pancreatic cancer Social History Housing: House Alcohol intake: never Patient Tobacco Use Status: Never used Tobacco Tobacco use type: Cigarette e-Cigarette/Vaping Use: Never Used Second Hand Smoke Exposure: No service: No 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 1. Little interest or pleasure in doing things: not at all 2. Feeling down, depressed, or hopeless: not at all 3. Trouble falling or staying asleep, or sleeping too much: not at all 4. Feeling tired or having little energy: not at all 5. Poor appetite or overeating: not at all 6. Feeling bad about yourself - or that you are a failure or have let yourself or your family down: not at all 7. Trouble concentrating on things, such as reading the newspaper or watching television: not at all 8. Moving or speaking so slowly that other people could have noticed. Or the opposite - being so fidgety or restless that you have been moving around a lot more than usual: not at all 9. Thoughts that you would be better off or of hurting yourself in some way: not at all Total score: 0 Depression Screening Interpretation: Negative Depression Screening Done: Yes 98007 - PHQ-9 Billing: Yes Source: Developed by Drs. Edouard Morales, Adrienne Tate, Jf Ann and colleagues, with an educational julián from [employer]. Thrive Questionnaire Date Thrive assessed: 01/11/25 I am a: Patient What is your living situation today?: I have a steady place to live Within the past 12 months, did the food you bought not last and you didn't have the money to get more?: Sometimes True Within the past 12 months, did you worry whether your food would run out before you got money to buy more?: Sometimes True Do you have trouble paying for medicines?: No Do you have trouble getting transportation to medical appointments?: No Do you have trouble paying your heating and electricity bill?: No Do you have trouble taking care of your child, family member or friend?: No Do you have trouble with day-to-day activities such as bathing, preparing meals, shopping, managing finances, etc.?: No Are you currently unemployed and looking for a job?: No Are you interested in more education?: No Please select the resources that you would like help with: None Currently or been in a relationship where the following occur: I choose not to answer THRIVE Score: 2 AUDIT C Alcohol Use Questionnaire (AUDIT-C) 2. How many drinks containing alcohol do you have on a typical day when you are drinking?: 1 or 2 Total Score: 0 GLADYS-7 AMB Questionnaire GLADYS-7 Date GLADYS - 7 assessed: 01/11/25 Feeling nervous, anxious, or on edge: 0 = Not at all Not being able to stop or control worryin = Not at all Worrying too much about different things: 0 = Not at all Trouble relaxin = Not at all Being so restless that it is hard to sit still: 0 = Not at all Becoming easily annoyed or irritable: 2 = More than half the days Feeling afraid as if something awful might happen: 0 = Not at all Total GLADYS-7 score (0-4 normal; 5-9 mild; 10-14 moderate; 15-21 severe): 2 Source: Developed by Drs. Edouard Morales, Adrienne Tate, Jf Ann and colleagues, with an educational julián from [employer]. GLADYS-7 Assessment Billing GLADYS-7 Assessment Tool: GLADYS-7 Assessment 53529 Review of Systems Const Denies body aches, Denies fatigue, Denies fever(s), Denies frequent falls, Denies headache(s) and Denies weakness Eyes Reports no additional complaints and Denies change in vision ENT Denies dysphagia, Denies dizziness, Denies facial pain, Denies headache(s), Denies nasal congestion and Denies odynophagia Card Denies chest pain, Denies syncope, Denies irregular heart rhythm, Denies leg edema, Denies lightheadedness and Denies dyspnea Resp Denies cough and Denies dyspnea GI Denies abdominal pain, Denies constipation, Denies dysphagia, Denies dyspepsia, Denies diarrhea, Denies nausea, Denies odynophagia and Denies vomiting Denies urinary frequency, Denies dysuria, Denies urinary hesitancy and Denies urinary urgency Musc Denies back pain and Denies myalgias Skin/Breast Reports system reviewed and no additional complaints, except as documented Neuro Denies dizziness, Denies syncope, Denies frequent falls, Denies headache(s) and Denies weakness Psych Reports no additional complaints Endo Denies fatigue Physical exam (Primary Care) Vital Signs: Last Vital Signs Pulse 87 01/11/25 15:30 BP 126/76 01/11/25 15:30 Pulse Ox 98 01/11/25 15:30 Oxygen Delivery Method Room Air 01/11/25 15:30 BMI result Body Mass Index 34.8 Tobacco/Smoking Status: Tobacco use Status Tobacco use date assessed 01/11/25 01/11/25 15:35 Patient Tobacco Use Status Never used Tobacco 01/11/25 15:35 Tobacco use type Cigarette 01/11/25 15:35 e-Cigarette/Vaping Use Never Used 01/11/25 15:35 PHQ-9: PHQ-9 Score PHQ-9: Total score 0 01/11/25 16:17 Depression Screening Interpretation: Negative Thrive Assessment: Date of Thrive Assessment Date Thrive assessed 01/11/25 01/11/25 15:35 Currently or been in a relationship where the following occur: I choose not to answer Const General: cooperative, healthy appearing, comfortable and no acute distress Orientation/consciousness: patient oriented x3 HENMT Head: Yes normocephalic Ears: hearing grossly normal bilaterally, external ears normal, TM's normal bilaterally and EAC's normal General nose exam: Normal external nose present Face and sinus: Yes normal facial exam and Yes sinuses nontender Mouth: Normal oral and palatal mucosa present and tongue normal Throat: Yes posterior oropharynx normal Eyes General: appearance normal, both eyes and all related structures Conjunctivae: conjunctivae normal Pupils: Equal, round and reactive pupils present EOM: EOMs intact bilaterally and No Nystagmus present Neck Neck: Yes normal visual inspection, Yes full ROM and Yes no lymphadenopathy Chest Chest palpation & inspection: normal inspection of the chest Resp Effort & Inspection: normal respiratory effort Auscultation: clear to auscultation bilaterally, no crackles, no rales, no rhonchi, no wheezes and breath sounds present Cardio Rate: regular rate Rhythm: regular rhythm Peripheral pulses: radial pulses present and dorsalis pedis present GI Inspection: Yes normal to inspection and No Abdominal wall edema Palpation (GI): Soft to palpation, not firm and nontender Auscultation: normal bowel sounds Rectal Exam - Female: deferred General: Yes no CVA tenderness Back/Spine/Pelvis Back: no CVA tenderness Skin Other: Scalp dermatitis with flaking General skin exam: no rashes or lesions noted Neuro General: patient oriented x3 Cranial nerves: Yes Equal, round and reactive pupils present, Yes Midline tongue present, Yes Ability to bilaterally elevate shoulders present and No Nystagmus present Gait exam (Neuro): Normal gait present Extrem General: Yes normal to inspection, Yes full ROM, No no pedal edema and No edema Psych Speech and movement: Normal speech and movement present Affect: normal affect Insight: Good insight present (Psych) Judgement: Good judgement present (Psych) Immunizations Tenivac (PF) 5 Lf unit-2 Lf unit/0.5 mL intramuscular syringe Performing Provider: Ashley Ewing PA-C Performing Location: [facility] [place] Adult Primary [facility] Administered by: Samantha Serrato CMA on 01/11/25 16:17 Dose Route Admin Location Dispensed Lot Number Expiration Date [facility] Dross Puller 0.5 mL IM Left Deltoid 0.5 mL [id number] 08/31/26 99394-150-47 [employer] Total Dispensed Waste 0.5 mL 0 % VIS Given Date VIS Provided VIS Publication Date 01/11/25 Single Vaccine 20 Eligibility Eligibility Date Funding Source Not [facility] Eligible 01/11/25 Private Coding Level of Care Code Est Pt Prev Care 40-64y(66377) Diagnoses Physical exam Z00.00 Elevated LFTs R79.89 HPV in female B97.7 Screening for hypercholesterolemia Z13.220 Plantar fasciitis M72.2 BMI 35.0-35.9,adult Z68.35 Seborrheic dermatitis of scalp L21.9 Additional Codes GLADYS-7 Assessment Billing - GLADYS-7 Assessment Tool: GLADYS-7 Assessment 21944 ([id number]) PHQ-9 - 68274 - PHQ-9 Billing: Yes ([id number]) Assessment & Plan Assessment & Plan (1) Physical exam: Comment: 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 Code(s): Z00.00 - Encounter for general adult medical examination without abnormal findings Category: Medical Plan: Patient is up-to-date on all recommended routine screenings and vaccinations for her age. TD was updated today. Healthy diet and regular exercise is encouraged. Blood work is up-to-date and has been reviewed with the patient today. (2) Elevated LFTs: Code(s): R79.89 - Other specified abnormal findings of blood chemistry Category: Medical Plan: Continue to monitor blood work at this time, last blood work WNL. (3) HPV in female: Comment: 06/27 NIL in Pap/HPV positive, HPV 16/18/45 negative Code(s): B97.7 - Papillomavirus as the cause of diseases classified elsewhere Category: Medical Plan: Continue to follow with wage hand. (4) Screening for hypercholesterolemia: Code(s): Z13.220 - Encounter for screening for lipoid disorders Category: Medical Plan: Blood work ordered today. (5) Plantar fasciitis: Code(s): M72.2 - Plantar fascial fibromatosis Category: Medical Plan: The patient reports foot pain associated with flat feet and has been advised on exercises and supportive footwear to manage symptoms. (6) BMI 35.0-35.9,adult: Code(s): Z68.35 - Body mass index [BMI] 35.0-35.9, adult Category: Medical Plan: Healthy diet and regular exercise is encouraged. (7) Seborrheic dermatitis of scalp: Code(s): L21.9 - Seborrheic dermatitis, unspecified Category: Medical Plan: The patient experiences scalp dermatitis, particularly around a previous surgical site, and has been using various shampoos to manage symptoms. Plan to trial ketoconazole shampoo Plan This note was constructed using voice recognition software. While every effort has been made to ensure accuracy and squad boss, still areas may have been included sometimes these areas may affect the content or meeting of the given symptoms. Total time spent caring for the patient today was 30 minutes. This includes time spent before the visit reviewing the chart, time spent during the visit, and time spent after the visit and documentation. Patient was informed and verbally consented to the use of an ambient scribe for clinic note documentation during this visit. Orders: Orders Lipid Panel 01/11/25 Z13.220 - Encounter for screening for lipoid disorders Td Immunization 01/11/25 Z23 - Encounter for immunization Medications: New ketoconazole 2% 1 appl topical 2XW 120 mL 0RF Discontinued meclizine Discontinued Reason: Patient no longer taking 12.5 mg PO TID PRN 14 tabs 0RF dizziness meclizine Discontinued Reason: Patient no longer taking 25 mg PO BID PRN 30 tabs 0RF dizziness R42 - Dizziness and giddiness
[2025-01-11 15:30] VITALS: BP 126/76; PULSE 87; O2SAT 98; BMI 34.8
== END 2025-01-11 16:20 | disposition home or self-care (01) ==
LOC: HO.HMCH 14:58
DX: Z00.00 Encounter for general adult medical examination without abnormal findings (principal); R79.89 Other specified abnormal findings of blood chemistry; B97.7 Papillomavirus as the cause of diseases classified elsewhere; Z13.220 Encounter for screening for lipoid disorders; M72.2 Plantar fascial fibromatosis; Z68.35 Body mass index [BMI] 35.0-35.9, adult; L21.9 Seborrheic dermatitis, unspecified

== ENCOUNTER → 2025-01-11 14:58 | Outpatient (BNVA) | payer OTHER, SELFPAY | DX: Z00.00 Encounter for general adult medical examination without abnormal findings (principal); Z23 Encounter for immunization; R79.89 Other specified abnormal findings of blood chemistry; B97.7 Papillomavirus as the cause of diseases classified elsewhere; M72.2 Plantar fascial fibromatosis; L21.9 Seborrheic dermatitis, unspecified; Z13.31 Encounter for screening for depression; Z13.39 Encounter for screening examination for other mental health and behavioral disorders | CPT/HCPCS: 90471; 90714; 96127 ==